=== PATIENT | male | born 1975 | race African-American/Black ===

== ENCOUNTER 2017-11-25 09:01 | Emergency (ER) | payer OTHER ==
--- NOTE | 2017-11-25 10:05 | ED ---
General Adult HPI - General Chief complaint: Extremity Injury, Upper Stated complaint: rt shoulder pain Time Seen by Provider: 11/25/17 09:50 Source: patient, RN notes reviewed Mode of arrival: ambulatory Limitations: no limitations - History of Present Illness Initial comments: This is a 42-year-old male who states he hurt his shoulder over a year ago and now he comes in complaining of it hurting while he is at work. Patient states he has a new job entails a lot of lifting and moving parts and it hurts when he lifts his arm above his head. Patient states his been no reinjury of the area. Patient states he has no primary care doctor because he just moved to the area and he would like to follow up with orthopedics. Patient states she's been taking Tylenol for the pain. It has not helped. Patient denies any other problems at this time. Patient denies any numbness or weakness. Patient states he just lies it difficult to fully abduct his arm above his head - Related Data Previous Rx's Medication Instructions Recorded Ibuprofen [Motrin] 600 mg PO Q6HR PRN #20 tab 11/25/17 Allergies Allergy/AdvReac Type Severity Reaction Status Date / Time No Known Allergies Allergy Verified 11/25/17 09:55 Review of Systems ROS Statement: Those systems with pertinent positive or pertinent negative responses have been documented in the HPI. ROS Other: All systems not noted in ROS Statement are negative. Past Medical History Additional Past Medical History / Comment(s): r shoulder pain History of Any Multi-Drug Resistant Organisms: None Reported Additional Past Surgical History / Comment(s): jaw surg Past Psychological History: No Psychological Hx Reported Smoking Status: Current every day smoker Past Alcohol Use History: Occasional Past Drug Use History: None Reported General Exam - General Exam Comments Initial Comments: GENERAL Patient is well-developed and well-nourished. Patient is in mild distress. EYES Patient's pupils are equal and round. Extraocular motion is intact SKIN Unremarkable NEURO The patient is alert and oriented 3 PYSCH Patient has normal interpersonal interactions. MUSCULOSKELETAL Patient has some mild tenderness on the lateral aspect of the shoulder there is no swelling is no redness patient has no obvious deficit in strength. She does appear to have some difficulty raising it above his head secondary to pain but he is able to do it. Limitations: no limitations Course Vital Signs 11/25/17 09:21 Temperature 98.2 F Pulse Rate 89 Respiratory 18 Rate Blood Pressure 157/99 O2 Sat by Pulse 98 Oximetry Disposition Clinical Impression: Shoulder strain Disposition: HOME SELF-CARE Condition: Good Instructions: Shoulder Sprain (ED) Prescriptions: Ibuprofen [Motrin] 600 mg PO Q6HR PRN #20 tab PRN Reason: For pain Referrals: None,Stated [Primary Care Provider] - 1-2 days Omid Reyes MD [Medical Doctor] - 1-2 days Time of Disposition: 10:04
[2017-11-25] MEDS ORDERED: cloNIDine HCL 0.1 MG TAB PO STA (10:16)
[2017-11-25 10:23] VITALS: RESP 16; TEMP 97.4
[2017-11-25 10:28] VITALS: BP 143/105; PULSE 75
== END 2017-11-25 10:30 | disposition home or self-care (01) ==
LOC: EC 09:01
DX: S46.911A Strain of unspecified muscle, fascia and tendon at shoulder and upper arm level, right arm, initial encounter (principal); F17.200 Nicotine dependence, unspecified, uncomplicated; X50.0XXA Overexertion from strenuous movement or load, initial encounter
CPT/HCPCS: 99282

== ENCOUNTER → 2019-09-19 | Outpatient (CLI) | payer OTHER ==
--- NOTE | 2019-09-19 15:11 | XR ---
Left shoulder HISTORY: Trauma and pain 4 views of the left shoulder There is slight superior displacement of distal clavicle in relation to the acromion. Left lung apex as visualized is normal. Bone mineralization is unremarkable. No evident fracture. IMPRESSION: Correlate for acromioclavicular separation.
== END | disposition home or self-care (01) ==
LOC: RADXRMAIN 14:38
PROVIDERS: ATTEND Emergency Medicine
DX: S46.802A Unspecified injury of other muscles, fascia and tendons at shoulder and upper arm level, left arm, initial encounter (principal)

== ENCOUNTER 2020-12-14 15:03 | Inpatient (IN) | payer OTHER ==
--- NOTE | 2020-12-14 15:32 | ED ---
Abdominal Pain HPI - General Source: patient, RN notes reviewed Mode of arrival: ambulatory Limitations: no limitations - History of Present Illness MD Complaint: abdominal pain -: days(s) (3) Location: RUQ, epigastric Radiation: back Severity: moderate Severity scale (1-10): 8 Quality: sharp, burning Improves With: medication Worsens With: movement (lying down) Context: other (drinking 1/2 pint a day up to 5 days a week, today 2 shots) Associated Symptoms: diarrhea (is taking a laxative prescribed after told constipation 1 month ago) Treatments Prior to Arrival: other (pantoprazole and sucrafalate) <Carlos Singh - Last Filed: 12/14/20 18:30> <Isael Lenz - Last Filed: 12/14/20 18:45> - General Chief Complaint: Abdominal Pain Stated Complaint: Abd Pain Time Seen by Provider: 12/14/20 15:18 - History of Present Illness Initial Comments: 45-year-old black male patient presents to the emergency room with approximately 3 days of sharp, burning, epigastric abdominal pain 05/14. Patient has a history of hypertension, jaw surgery and right tib-fib surgery last year. States drinks up to 5 days a week upt to a pint to help cope with loosing his job and covid. Patient denies homicidal or suicidal ideation. Patient also admits to smoking 1/2 a pack a day. was seen 1 month ago at [facility] and told after a chest x-ray and CAT scan, that he had pneumonia and gastritis. Was prescribed pantoprazole and sucrafalate along with albuterol and Combivent. Patient does have some relief from abdominal pain with pantoprazole and sucrafalte. Patient states had 2 shots today which worsened his pain. Patient denies nausea and vomiting seats did have diarrhea but was taking a laxative as previously prescribed. Patient denies chest pain shortness of breath Patient denies illicit drug use. (Carlos Singh) - Related Data Previous Rx's Medication Instructions Recorded Ibuprofen [Motrin] 600 mg PO Q6HR PRN #20 tab 11/25/17 Allergies Allergy/AdvReac Type Severity Reaction Status Date / Time No Known Allergies Allergy Verified 12/14/20 15:10 Review of Systems ROS Other: All systems not noted in ROS Statement are negative. <Carlos Singh - Last Filed: 12/14/20 18:30> ROS Other: All systems not noted in ROS Statement are negative. <Isael Lenz - Last Filed: 12/14/20 18:45> ROS Statement: Those systems with pertinent positive or pertinent negative responses have been documented in the HPI. Past Medical History Past Medical History: Hypertension Additional Past Medical History / Comment(s): r shoulder pain History of Any Multi-Drug Resistant Organisms: None Reported Past Surgical History: Orthopedic Surgery Additional Past Surgical History / Comment(s): jaw surg Past Psychological History: No Psychological Hx Reported Smoking Status: Current every day smoker Past Alcohol Use History: Heavy Past Drug Use History: None Reported <Carlos Singh - Last Filed: 12/14/20 18:30> General Exam Limitations: no limitations General appearance: alert, in no apparent distress Head exam: Present: atraumatic, normocephalic, normal inspection Eye exam: Present: normal appearance, PERRL, EOMI. Absent: scleral icterus, conjunctival injection, periorbital swelling ENT exam: Present: normal exam, mucous membranes moist Neck exam: Present: normal inspection. Absent: tenderness, meningismus, lymphadenopathy Respiratory exam: Present: normal lung sounds bilaterally. Absent: respiratory distress, wheezes, rales, rhonchi, stridor Cardiovascular Exam: Present: regular rate, normal rhythm, normal heart sounds. Absent: systolic murmur, diastolic murmur, rubs, gallop, clicks GI/Abdominal exam: Present: soft, tenderness (right upper and epigastric), hyperactive bowel sounds. Absent: distended, guarding, rebound, rigid, organomegaly, mass, bruit, pulsatile mass, hernia Extremities exam: Present: normal inspection, full ROM, normal capillary refill. Absent: tenderness, pedal edema, joint swelling, calf tenderness Neurological exam: Present: alert, oriented X3, CN II-XII intact Psychiatric exam: Present: normal affect, normal mood, depressed (admits to depression, denies SI , HI). Absent: agitated, flat affect, homicidal ideation, suicidal ideation Skin exam: Present: warm, dry, intact, normal color. Absent: rash <Carlos Singh - Last Filed: 12/14/20 18:30> Course - Reevaluation(s) Time: 16:38 <Carlos Singh - Last Filed: 12/14/20 18:30> <Isael Lenz - Last Filed: 12/14/20 18:45> Vital Signs 12/14/20 12/14/20 12/14/20 15:08 17:46 18:38 Temperature 97.8 F 98.0 F 98.0 F Pulse Rate 67 91 98 Respiratory 18 18 16 Rate Blood Pressure 150/111 163/89 167/89 O2 Sat by Pulse 99 99 99 Oximetry - Reevaluation(s) Reevaluation #1: 12/14/20 16:38 Patient states pain is 5 or 6 out of 10 at this time. States pain is worse when laying flat and resolves when he stands or sits up. Awaiting CBC however ALT and AST are elevated with EtOH level of 152 (Carlos Singh) Reevaluation #2: 12/14/20 18:45 PA supervision: I did personally evaluates case patient's present with complaints of abdominal pain he is found to have pancreatitis in addition to alcohol intoxication. He'll be admitted with consultation to GI. (Isael Lenz) Medical Decision Making - Lab Data Result diagrams: 12/14/20 15:51 12/14/20 15:51 - Radiology Data Radiology results: report reviewed, image reviewed (no pneumoperitoneum, non- obstructing, non-distending gas pattern noted) <Carlos Singh - Last Filed: 12/14/20 18:30> - Lab Data Result diagrams: 12/14/20 15:51 12/14/20 15:51 <Isael Lenz - Last Filed: 12/14/20 18:45> - Medical Decision Making Patient given 1 L of 0.9 normal saline bolus, a lipase 1709, ALT is 76 AST 174 alk phos 151 alcohol level 152. X-ray shows nondistended and nonobstructive gas pattern no pneumoperitoneum no abnormal calcifications. Spoke with primary care physician Dr. Hannon will admit patient to his care with the GI consult to Dr. Damon. Potassium level of 3.3 with give 40 of kdur po. Patient will be placed on a CIWA scale to monitor for alcohol withdrawal. Patient given Dilaudid for pain and will be NPO until seen by GI. (Carlos Singh) - Lab Data Lab Results 12/14/20 12/14/20 12/14/20 Range/Units 15:51 15:51 15:51 WBC 7.4 (3.8-10.6) k/uL RBC 3.62 L (4.30-5.90) m/uL Hgb 13.2 (13.0-17.5) gm/dL Hct 38.5 L (39.0-53.0) % MCV 106.5 H (80.0-100.0) fL MCH 36.5 H (25.0-35.0) pg MCHC 34.3 (31.0-37.0) g/dL RDW 13.7 (11.5-15.5) % Plt Count 245 (150-450) k/uL MPV 7.7 Neutrophils % 52 % Lymphocytes % 37 % Monocytes % 5 % Eosinophils % 4 % Basophils % 1 % Neutrophils # 3.9 (1.3-7.7) k/uL Lymphocytes # 2.7 (1.0-4.8) k/uL Monocytes # 0.3 (0-1.0) k/uL Eosinophils # 0.3 (0-0.7) k/uL Basophils # 0.0 (0-0.2) k/uL Macrocytosis Moderate PT (9.0-12.0) sec INR (<1.2) APTT (22.0-30.0) sec Sodium 141 (137-145) mmol/L Potassium 3.3 L (3.5-5.1) mmol/L Chloride 107 (98-107) mmol/L Carbon Dioxide 23 (22-30) mmol/L Anion Gap 11 mmol/L BUN 5 L (9-20) mg/dL Creatinine 0.67 (0.66-1.25) mg/dL Est GFR (CKD-EPI)AfAm >90 (>60 ml/min/1.73 sqM) Est GFR (CKD-EPI)NonAf >90 (>60 ml/min/1.73 sqM) Glucose 106 H (74-99) mg/dL Calcium 9.3 (8.4-10.2) mg/dL Magnesium (1.6-2.3) mg/dL Total Bilirubin 0.4 (0.2-1.3) mg/dL AST 174 H (17-59) U/L ALT 76 H (4-49) U/L Alkaline Phosphatase 151 H (38-126) U/L Total Protein 7.4 (6.3-8.2) g/dL Albumin 4.4 (3.5-5.0) g/dL Lipase 1709 H (23-300) U/L Urine Color Yellow Urine Appearance Clear (Clear) Urine pH 6.0 (5.0-8.0) Ur Specific [place] 1.020 (1.001-1.035) Urine Protein Negative (Negative) Urine Glucose (UA) Negative (Negative) Urine Ketones Negative (Negative) Urine Blood Negative (Negative) Urine Nitrite Negative (Negative) Urine Bilirubin Negative (Negative) Urine Urobilinogen <2.0 (<2.0) mg/dL Ur Leukocyte Esterase Negative (Negative) Serum Alcohol 152 mg/dL 12/14/20 12/14/20 Range/Units 15:51 15:51 WBC (3.8-10.6) k/uL RBC (4.30-5.90) m/uL Hgb (13.0-17.5) gm/dL Hct (39.0-53.0) % MCV (80.0-100.0) fL MCH (25.0-35.0) pg MCHC (31.0-37.0) g/dL RDW (11.5-15.5) % Plt Count (150-450) k/uL MPV Neutrophils % % Lymphocytes % % Monocytes % % Eosinophils % % Basophils % % Neutrophils # (1.3-7.7) k/uL Lymphocytes # (1.0-4.8) k/uL Monocytes # (0-1.0) k/uL Eosinophils # (0-0.7) k/uL Basophils # (0-0.2) k/uL Macrocytosis PT 11.6 (9.0-12.0) sec INR 1.1 (<1.2) APTT 25.6 (22.0-30.0) sec Sodium (137-145) mmol/L Potassium (3.5-5.1) mmol/L Chloride (98-107) mmol/L Carbon Dioxide (22-30) mmol/L Anion Gap mmol/L BUN (9-20) mg/dL Creatinine (0.66-1.25) mg/dL Est GFR (CKD-EPI)AfAm (>60 ml/min/1.73 sqM) Est GFR (CKD-EPI)NonAf (>60 ml/min/1.73 sqM) Glucose (74-99) mg/dL Calcium (8.4-10.2) mg/dL Magnesium 1.7 (1.6-2.3) mg/dL Total Bilirubin (0.2-1.3) mg/dL AST (17-59) U/L ALT (4-49) U/L Alkaline Phosphatase (38-126) U/L Total Protein (6.3-8.2) g/dL Albumin (3.5-5.0) g/dL Lipase (23-300) U/L Urine Color Urine Appearance (Clear) Urine pH (5.0-8.0) Ur Specific [place] (1.001-1.035) Urine Protein (Negative) Urine Glucose (UA) (Negative) Urine Ketones (Negative) Urine Blood (Negative) Urine Nitrite (Negative) Urine Bilirubin (Negative) Urine Urobilinogen (<2.0) mg/dL Ur Leukocyte Esterase (Negative) Serum Alcohol mg/dL Disposition Decision Date: 12/14/20 Decision Time: 18:23 <Carlos Singh - Last Filed: 12/14/20 18:30> <Isael Lenz - Last Filed: 12/14/20 18:45> Clinical Impression: Pancreatitis, Alcohol intoxication Disposition: ADMITTED IP TO THIS [facility] Condition: Good Referrals: Pollo Hannon MD [Primary Care Provider] - 1-2 days
[2020-12-14] MEDS ORDERED: SODIUM CHLORIDE 0.9% 1,000 ML IV STA (15:39)
[2020-12-14] MEDS ORDERED: FAMOTIDINE 20 MG/2 ML VIAL IV STA (15:43)
--- NOTE | 2020-12-14 16:02 | XR ---
EXAMINATION TYPE: XR KUB DATE OF EXAM: 12/14/2020 3:57 PM CLINICAL HISTORY: Abdominal pain for 3 days. TECHNIQUE: Two Upright KUB images of the abdomen are obtained. COMPARISON: None. FINDINGS: Gas in nondistended stomach bubble. Scattered gas is seen in non-distended small and large bowel loops. Suspect nondilated sigmoid colonic loop overlying the sacrum. Loss of haustration noted. There is no visceromegaly, pneumoperitoneum, or abnormal calcification appreciated. The lung bases a re clear and the osseous structures are intact. IMPRESSION: Overall nonobstructive bowel gas pattern. Consider focal sigmoid colitis, correlate clinically.
[2020-12-14 16:09] LABS: ALT 76 U/L (4-49); AST 174 U/L (17-59); African American GFR (CKD) >90 (>60 ml/min/1.73 sqM); Albumin 4.4 g/dL (3.5-5.0); Alkaline Phosphatase 151 U/L (38-126); Anion Gap 11 mmol/L; Blood Urea Nitrogen 5 mg/dL (9-20); Calcium 9.3 mg/dL (8.4-10.2); Carbon Dioxide 23 mmol/L (22-30); Chloride 107 mmol/L (98-107); Glucose 106 mg/dL (74-99); Non-African American GFR(CKD) >90 (>60 ml/min/1.73 sqM); Potassium 3.3 mmol/L (3.5-5.1); Sodium 141 mmol/L (137-145); Total Bilirubin 0.4 mg/dL (0.2-1.3); Total Protein 7.4 g/dL (6.3-8.2)
[2020-12-14 16:12] LABS: Appearance,Urine Clear (Clear); Bilirubin,Urine Negative (Negative); Blood,Urine Negative (Negative); Color,Urine Yellow; Glucose,Urine (UA) Negative (Negative); Ketones,Urine Negative (Negative); Leukocyte Esterase,Urine Negative (Negative); Nitrite,Urine Negative (Negative); Protein,Urine Negative (Negative); Urobilinogen,Urine <2.0 mg/dL (<2.0)
[2020-12-14 16:17] LABS: Alcohol 152 mg/dL
[2020-12-14 16:22] LABS: Basophils % (A) 1 %; Eosinophils # (A) 0.3 k/uL (0-0.7); Eosinophils % (A) 4 %; HCT 38.5 % (39.0-53.0); HGB 13.2 gm/dL (13.0-17.5); Lymphocytes # (A) 2.7 k/uL (1.0-4.8); Lymphocytes % (A) 37 %; MCH 36.5 pg (25.0-35.0); MCHC 34.3 g/dL (31.0-37.0); MCV 106.5 fL (80.0-100.0); Macrocytosis Moderate; Mean Platelet Volume 7.7; Monocytes # (A) 0.3 k/uL (0-1.0); Monocytes % (A) 5 %; Neutrophils # (A) 3.9 k/uL (1.3-7.7); Neutrophils % (A) 52 %; Platelet Count 245 k/uL (150-450); RBC 3.62 m/uL (4.30-5.90); RDW 13.7 % (11.5-15.5); WBC 7.4 k/uL (3.8-10.6)
[2020-12-14 16:38] LABS: INR 1.1 (<1.2); Partial Thromboplastin Time 25.6 sec (22.0-30.0); Prothrombin Time 11.6 sec (9.0-12.0)
[2020-12-14] MEDS ORDERED: HYDROmorphone 0.5 MG/0.5 ML SYRINGE IVP STA (17:22)
[2020-12-14 17:27] LABS: Lipase 1709 U/L (23-300)
[2020-12-14] MEDS ORDERED: NALOXONE 0.4 MG/ML 1 ML VIAL IV PRN (18:10)
[2020-12-14] MEDS ORDERED: THIAMINE 100 MG/ML 2 ML VIAL IM STA (18:15)
[2020-12-14] MEDS ORDERED: LORazepam 2 MG/ML INJ IV PRN ×3 (18:15)
[2020-12-14] MEDS ORDERED: POTASSIUM CHLORIDE ER 20 MEQ TAB.ER PO STA (18:17)
[2020-12-14] MEDS: SODIUM CHLORIDE 0.9% 1,000 ML IV SCH ×2 (18:29→22:56)
[2020-12-14] MEDS: THIAMINE 100 MG TAB PO SCH (18:30)
--- NOTE | 2020-12-14 19:47 | US ---
EXAMINATION TYPE: US abdomen limited DATE OF EXAM: 12/14/2020 COMPARISON: NONE CLINICAL HISTORY: RUQ abd pain radiates to back. EXAM MEASUREMENTS: Liver Length: 15.1 cm Gallbladder Wall: 0.1 cm CBD: 0.4 cm Right Kidney: 11.5 x 5.4 x 5.2 cm Extensive overlying midline bowel gas, technically difficult limited study. Pancreas: Obscured by bowel gas Liver: small left lobe cyst measuring 0.8 x 0.5 x 0.8cm Gallbladder: probable sludge, normal wall thickness Evidence for sonographic Elias's sign: no CBD: wnl Right Kidney: not well visualized, no obvious mass or hydro IMPRESSION: No gallstones or dilated ducts. No free fluid.
--- NOTE | 2020-12-14 22:10 | HP ---
HISTORY AND PHYSICAL This patient is a 45-year-old male who came to the hospital with epigastric pain for the past 5 days. He has been drinking half a pint a day for multiple months due to losing his job due to COVID. He was found to have severely elevated amylase and lipase of 1700, at which time he came to the hospital for nausea, vomiting, alcohol withdrawal. ALLERGIES: NO KNOWN DRUG ALLERGIES. PAST MEDICAL HISTORY: Hypertension, osteoarthritis, rotator cuff difficulties, orthopedic surgery. Current everyday smoker. Heavy alcohol. PHYSICAL EXAMINATION: No acute distress. VITAL SIGNS: Reviewed. Blood pressure 150s to 160s over 80s to 111, oxygen 99%, temperature 97 to 98, pulse 60s to 90s, respiratory rate 18 to 20. Pupils equal, round, reactive. NECK: Supple. No mass. RESPIRATORY: Clear. CARDIOVASCULAR: S1, S2. GI: Tenderness to palpation, epigastric mid abdomen. No guarding. No rebound. EXTREMITIES: No cyanosis, clubbing, edema. NEUROLOGIC: Alert and oriented x3. PSYCH: Fair mood and affect. ASSESSMENT: 1. Acute pancreatitis. 2. Alcohol intoxication. GI consultation. 3. Hypokalemia. Replace potassium. 4. Hypertension acceleration. Treat with medications. Restart his home medicines. N.p.o. versus clear liquid diet at this time. Please see further orders. MMODL / IJN: [id number] /
[2020-12-14] MEDS: traZODone HCL 50 MG TAB PO PRN (22:51)
[2020-12-14] MEDS: HYDROmorphone 0.5 MG/0.5 ML SYRINGE IVP PRN (22:51)
[2020-12-14] MEDS: SUCRALFATE 1 GM TAB PO SCH (22:51)
[2020-12-15] MEDS: HYDROmorphone 0.5 MG/0.5 ML SYRINGE IVP PRN ×5 (04:07→21:45)
[2020-12-15] MEDS: SODIUM CHLORIDE 0.9% 1,000 ML IV SCH ×3 (04:09→21:44)
[2020-12-15 07:26] LABS: Basophils % (A) 0 %; Eosinophils # (A) 0.4 k/uL (0-0.7); Eosinophils % (A) 6 %; HCT 34.8 % (39.0-53.0); HGB 12.5 gm/dL (13.0-17.5); Lymphocytes # (A) 2.9 k/uL (1.0-4.8); Lymphocytes % (A) 47 %; MCH 38.3 pg (25.0-35.0); MCHC 36.1 g/dL (31.0-37.0); MCV 106.1 fL (80.0-100.0); Macrocytosis Slight; Mean Platelet Volume 6.9; Monocytes # (A) 0.3 k/uL (0-1.0); Monocytes % (A) 4 %; Neutrophils # (A) 2.6 k/uL (1.3-7.7); Neutrophils % (A) 42 %; Platelet Count 205 k/uL (150-450); RBC 3.28 m/uL (4.30-5.90); RDW 12.9 % (11.5-15.5); WBC 6.2 k/uL (3.8-10.6)
[2020-12-15 07:43] LABS: ALT 60 U/L (4-49); AST 126 U/L (17-59); African American GFR (CKD) >90 (>60 ml/min/1.73 sqM); Albumin 3.7 g/dL (3.5-5.0); Albumin/Globulin Ratio 1.3; Alkaline Phosphatase 134 U/L (38-126); Amylase 133 U/L (30-110); Anion Gap 6 mmol/L; Blood Urea Nitrogen 3 mg/dL (9-20); Calcium 8.3 mg/dL (8.4-10.2); Carbon Dioxide 23 mmol/L (22-30); Chloride 108 mmol/L (98-107); Globulin 2.9 g/dL; Glucose 99 mg/dL (74-99); Lipase 870 U/L (23-300); Non-African American GFR(CKD) >90 (>60 ml/min/1.73 sqM); Potassium 3.2 mmol/L (3.5-5.1); Sodium 137 mmol/L (137-145); Total Bilirubin 0.7 mg/dL (0.2-1.3); Total Protein 6.6 g/dL (6.3-8.2)
[2020-12-15] MEDS: PANTOPRAZOLE 40 MG TABLET PO SCH (07:59)
[2020-12-15] MEDS: MULTIVITAMINS, THERA 1 EACH TAB PO SCH (07:59)
[2020-12-15] MEDS: SUCRALFATE 1 GM TAB PO SCH ×4 (07:59→21:45)
[2020-12-15] MEDS: amLODIPine 2.5 MG TAB PO SCH (07:59)
[2020-12-15] MEDS: THIAMINE 100 MG TAB PO SCH ×2 (07:59→17:47)
[2020-12-15] MEDS: IPRATROPIUM-ALBUTEROL 3 ML NEB INHALATION SCH ×4 (08:01→19:32)
--- NOTE | 2020-12-15 09:50 | CONS ---
CONSULTATION DATE OF SERVICE: 12/15/2020 REASON FOR CONSULTATION: Acute pancreatitis. HISTORY OF PRESENT ILLNESS: The patient is a 45-year-old male admitted to the hospital with epigastric pain for the last 3-4 days duration, history of heavy alcohol abuse for the last 30 years duration. The patient came in with multiple episodes of nausea and vomiting and was noted to have elevated amylase and lipase consistent with acute pancreatitis. This morning he is feeling better. The nausea and vomiting has improved, but still has some epigastric discomfort. He reports no fever, chills, night sweats. He never had these symptoms in the past. PAST MEDICAL HISTORY: Hypertension, degenerative joint disease, alcoholism. MEDICATIONS: Medications at home include Norvasc trazodone, Carafate, Protonix, Flovent. ALLERGIES: None. SOCIAL HISTORY: Chronic smoker. Alcohol use as mentioned above. FAMILY HISTORY: Unremarkable. PAST SURGICAL HISTORY: Right shoulder surgery. REVIEW OF SYSTEMS: CARDIOPULMONARY: No chest pain or shortness of breath. no dysuria or hematuria. MUSCULOSKELETAL unremarkable. SKIN unremarkable. ENDOCRINE unremarkable. PSYCHIATRIC unremarkable. NEUROLOGY: Unremarkable. ENT/VISION: Unremarkable. CONSTITUTIONAL: No recent weight loss. No fever, chills, night sweats. GI as mentioned above. PHYSICAL EXAMINATION: He appears comfortable. No apparent distress. VITAL SIGNS: Stable. Blood pressure is 139/82, pulse rate 99 per minute and afebrile. HEENT examination unremarkable. Conjunctivae pink. Sclerae anicteric. Oral cavity no lesions. NECK: No JVD or lymph node enlargement. CHEST was clear to auscultation. HEART: Regular rate and rhythm. ABDOMEN: Soft. Bowel sounds are positive. Mild tenderness in the epigastric area. EXTREMITIES: No pedal edema. SKIN no rashes. NEUROLOGIC: Alert and oriented x3. No focal deficits. LABS: WBC 7.4, hemoglobin 13.2, platelets normal. Basic metabolic panel is within normal limits. AST and ALT are 174 and 76 respectively. T-bilirubin and alkaline phosphatase are within normal limits. Lipase was 1709 and today it is down to 870. Barbour virus PCR is negative. Abdominal ultrasound showed no evidence of gallstones or biliary ductal dilation. Pancreas was obscured by gas. IMPRESSION: 1. This is a patient with history of heavy alcohol abuse presented to the hospital with acute onset of epigastric pain associated with nausea and vomiting for the last 3 days duration. Labs revealed elevated amylase and lipase consistent with acute pancreatitis most likely alcohol related. Ultrasound of the abdomen did not show any evidence of gallstones or biliary ductal dilation. 2. History of heavy alcohol abuse of several years duration. 3. Mild alcohol withdrawal. RECOMMENDATIONS: 1. Start him on a clear liquid diet. 2. Symptomatic and supportive care. 3. Pain medications as needed. 4. Repeat labs in the morning and advance diet as tolerated based on his clinical course. 5. Abstinence from alcohol. 6. Will follow with you closely. Thank you for this consultation. MMGREGORYL / KEITHN: [id number] /
--- NOTE | 2020-12-15 11:54 | PN ---
PROGRESS NOTE 45-year-old white male came in with alcohol induced pancreatitis. He is n.p.o. currently. His liver enzymes are improved from yesterday. His amylase is down to from 155-133. Lipase 1709 down to 870. He is on alcohol CIWA protocol. Hypertension has been treated with home medications. Cardiovascular: S1-S2. Lungs clear. GI: Mild tenderness, diffuse. He is on Dilaudid for pain. No guarding. No rebound. ASSESSMENT: 1. Alcohol intoxication. 2. Heavy alcohol abuse. 3. Acute on chronic pancreatitis, alcohol related. Ultrasound negative for gallstones or biliary dilation. Clear liquid diet. Pain medicine. Repeat labs in the morning. Possibly continue CIWA protocol. Possibly discharge home tomorrow. MMODL / IJN: [id number] /
[2020-12-15] MEDS: traZODone HCL 50 MG TAB PO PRN (21:45)
[2020-12-16] MEDS: SODIUM CHLORIDE 0.9% 1,000 ML IV SCH ×2 (00:07→08:03)
[2020-12-16] MEDS: HYDROmorphone 0.5 MG/0.5 ML SYRINGE IVP PRN ×3 (01:55→12:25)
[2020-12-16] MEDS: SUCRALFATE 1 GM TAB PO SCH ×2 (07:59→12:31)
[2020-12-16] MEDS: PANTOPRAZOLE 40 MG TABLET PO SCH (07:59)
[2020-12-16] MEDS: MULTIVITAMINS, THERA 1 EACH TAB PO SCH (07:59)
[2020-12-16] MEDS: THIAMINE 100 MG TAB PO SCH (08:02)
[2020-12-16] MEDS: amLODIPine 2.5 MG TAB PO SCH (08:07)
[2020-12-16] MEDS: IPRATROPIUM-ALBUTEROL 3 ML NEB INHALATION SCH ×2 (08:30→11:39)
--- NOTE | 2020-12-16 10:38 | PN ---
PROGRESS NOTE DATE OF DICTATION: December 16, 2020 Patient is a 45-year-old white male admitted to hospital with acute alcoholic pancreatitis. The patient is feeling much better today on a full liquid diet, tolerating well. Abdominal pain has improved requiring pain medications quite infrequently. Labs from today are still pending. PHYSICAL EXAMINATION: He appears comfortable. No apparent distress. VITAL SIGNS: Stable. Blood pressure is 143/80, pulse 96, temperature 98.9. HEENT examination unremarkable. Conjunctivae pink. Sclerae anicteric oral cavity no lesions. NECK: No JVD. No lymph node enlargement. CHEST was clear to auscultation. HEART: Regular rate and rhythm. ABDOMEN: Soft. Minimal tenderness in the epigastric area. Bowel sounds are positive. No organomegaly. EXTREMITIES: No pedal edema. NEUROLOGIC: Alert and oriented x3. No focal deficits. LABS: From yesterday: Amylase 133, lipase 870. AST, ALT 60 and 134, alkaline phosphatase 134. Lab from today are still pending. IMPRESSION: 1. Acute pancreatitis secondary to alcohol use. Ultrasound of the abdomen did not show any evidence of gallstones. Lipase is gradually improving. Clinically patient has significantly improved on a soft diet, tolerating well. 2. Heavy alcohol abuse. 3. Mild elevation of serum transaminases secondary to chronic alcoholic liver disease. RECOMMENDATIONS: 1. Advance to low-fat diet. 2. Repeat labs today. 3. If the labs are improving, the patient can be discharged home today or tomorrow with outpatient followup in 2 weeks. In the meantime, he was advised to remain abstinent from alcohol. Thank you for this consultation. MMODL / IJN: [id number] /
[2020-12-16 11:33] LABS: HGB 10.9 g/dL (13.0-17.0); MCH 36.9 pg (27.0-32.0); MCHC 34.1 g/dL (32.0-37.0); MCV 108.5 fL (80.0-97.0); Mean Platelet Volume 10.3 fL (9.5-12.2); Platelet Count 185 X 10*3/uL (140-440); RBC 2.95 X 10*6/uL (4.40-5.60); RDW 13.1 % (11.5-14.5); WBC 7.45 X 10*3/uL (4.50-10.00)
[2020-12-16] MEDS ORDERED: POTASSIUM CHLORIDE ER 20 MEQ TAB.ER PO STA (11:51)
[2020-12-16 12:05] LABS: ALT 45 U/L (10-49); AST 57 U/L (14-35); Alkaline Phosphatase 137 U/L (41-126); Basophils # (A) 0.04 X 10*3/uL (0.00-0.10); Basophils % (A) 0.5 %; Blood Urea Nitrogen <5.0 mg/dL (9.0-27.0); Calcium 8.9 mg/dL (8.7-10.3); Carbon Dioxide 26.8 mmol/L (21.6-31.8); Chloride 106 mmol/L (96-109); Eosinophils # (A) 0.26 X 10*3/uL (0.04-0.35); Eosinophils % (A) 3.5 %; Globulin 2.3 g/dL (1.6-3.3); Glucose 140 mg/dL (70-110); Lipase 145 U/L (14-60); Lymphocytes # (A) 2.42 X 10*3/uL (0.90-5.00); Lymphocytes % (A) 32.5 %; Monocytes # (A) 0.48 X 10*3/uL (0.20-1.00); Monocytes % (A) 6.4 %; Neutrophils # (A) 4.23 X 10*3/uL (1.80-7.70); Neutrophils % (A) 56.8 %; Non-African American GFR(CKD) 115.6 (60.0-200.0); Potassium 3.4 mmol/L (3.5-5.5); Sodium 140 mmol/L (135-145); Total Bilirubin 0.6 mg/dL (0.2-1.2); Total Protein 6.2 g/dL (6.2-8.2)
[2020-12-16 13:12] VITALS: BP 136/91; PULSE 101; RESP 18; TEMP 97.7
--- NOTE | 2020-12-16 14:23 | P.GSCN ---
History of Present Illness Consult date: 12/16/20 Reason for Consult: Cholecystitis History of present illness: This is a 45-year-old male was admitted to Dr. Ochoa service patient has had history of alcohol abuse. Patient noted have evidence of pancreatitis and liver function tests which are elevated. He has sludge in his gallbladder. He shouldn't has had pain in her upper quadrant in the past. Past Medical History Past Medical History: Hypertension Additional Past Medical History / Comment(s): r shoulder pain, kidney infection History of Any Multi-Drug Resistant Organisms: None Reported Past Surgical History: Orthopedic Surgery Additional Past Surgical History / Comment(s): jaw surg, leg (right- pins/ plate) Past Anesthesia/Blood Transfusion Reactions: No Reported Reaction Additional Psychological History / Comment(s): insomnia Smoking Status: Current every day smoker Past Alcohol Use History: Heavy Past Drug Use History: None Reported Additional Drug Use History / Comment(s): 1/2 pack per day Medications and Allergies Home Medications Medication Instructions Recorded Confirmed Type Fluticasone Propionate [Flovent 2 puff INHALATION RT-BID 12/14/20 12/14/20 History Hfa 110 mcg] Ipratropium/Albuter 20-100Mcg 1 puff INHALATION RT-QID 12/14/20 12/14/20 History [Combivent Respimat 20-100Mcg Inhaler] Multivit-Min/FA/Lycopen/Lutein 1 tab PO DAILY 12/14/20 12/14/20 History [Centrum Silver Men Tablet] Pantoprazole [Protonix] 40 mg PO DAILY 12/14/20 12/14/20 History Sucralfate [Carafate] 1 gm PO QID 12/14/20 12/14/20 History amLODIPine [Norvasc] 2.5 mg PO DAILY 12/14/20 12/14/20 History traZODone HCL 50 mg PO HS PRN 12/14/20 12/14/20 History Allergies Allergy/AdvReac Type Severity Reaction Status Date / Time No Known Allergies Allergy Verified 12/14/20 19:14 Surgical - Exam Vital Signs Temp Pulse Resp BP Pulse Ox 97.8 F 67 18 150/111 99 12/14/20 15:08 12/14/20 15:08 12/14/20 15:08 12/14/20 15:08 12/14/20 15:08 - General well developed, well nourished, no distress - Eyes PERRL - ENT normal pinna - Neck no masses - Respiratory normal expansion - Cardiovascular Rhythm: regular - Abdomen Mild right upper quadrant pain Abdomen: soft Results - Labs 12/16/20 09:13 12/16/20 09:13 Abnormal Lab Results - Last 24 Hours (Table) 12/16/20 12/16/20 Range/Units 09:13 09:13 RBC 2.95 L (4.40-5.60) X 10*6/uL Hgb 10.9 L (13.0-17.0) g/dL Hct 32.0 L (39.6-50.0) % MCV 108.5 H (80.0-97.0) fL MCH 36.9 H (27.0-32.0) pg Potassium 3.4 L (3.5-5.5) mmol/L BUN <5.0 L (9.0-27.0) mg/dL Glucose 140 H (70-110) mg/dL AST 57 H (14-35) U/L Alkaline Phosphatase 137 H (41-126) U/L Lipase 145 H (14-60) U/L Diabetes panel 12/16/20 Range/Units 09:13 Sodium 140 (135-145) mmol/L Potassium 3.4 L (3.5-5.5) mmol/L Chloride 106 (96-109) mmol/L Carbon Dioxide 26.8 (21.6-31.8) mmol/L BUN <5.0 L (9.0-27.0) mg/dL Creatinine 0.7 (0.6-1.5) mg/dL Glucose 140 H (70-110) mg/dL Calcium 8.9 (8.7-10.3) mg/dL AST 57 H (14-35) U/L ALT 45 (10-49) U/L Alkaline Phosphatase 137 H (41-126) U/L Total Protein 6.2 (6.2-8.2) g/dL Albumin 3.90 (3.80-4.90) g/dL Calcium panel 12/16/20 Range/Units 09:13 Calcium 8.9 (8.7-10.3) mg/dL Albumin 3.90 (3.80-4.90) g/dL Pituitary panel 12/16/20 Range/Units 09:13 Sodium 140 (135-145) mmol/L Potassium 3.4 L (3.5-5.5) mmol/L Chloride 106 (96-109) mmol/L Carbon Dioxide 26.8 (21.6-31.8) mmol/L BUN <5.0 L (9.0-27.0) mg/dL Creatinine 0.7 (0.6-1.5) mg/dL Glucose 140 H (70-110) mg/dL Calcium 8.9 (8.7-10.3) mg/dL Adrenal panel 12/16/20 Range/Units 09:13 Sodium 140 (135-145) mmol/L Potassium 3.4 L (3.5-5.5) mmol/L Chloride 106 (96-109) mmol/L Carbon Dioxide 26.8 (21.6-31.8) mmol/L BUN <5.0 L (9.0-27.0) mg/dL Creatinine 0.7 (0.6-1.5) mg/dL Glucose 140 H (70-110) mg/dL Calcium 8.9 (8.7-10.3) mg/dL Total Bilirubin 0.6 (0.2-1.2) mg/dL AST 57 H (14-35) U/L ALT 45 (10-49) U/L Alkaline Phosphatase 137 H (41-126) U/L Total Protein 6.2 (6.2-8.2) g/dL Albumin 3.90 (3.80-4.90) g/dL Assessment and Plan Assessment: Alcohol abuse Sludge and gallbladder Patient will be seen in the office for possible elective outpatient laparoscopic cholecystectomy.
--- NOTE | 2020-12-16 14:43 | DS ---
DISCHARGE SUMMARY DISCHARGE MEDICATIONS: 1. Trazodone 50 q.h.s. 2. Norvasc 2.5 daily. 3. Carafate 1 g daily q.i.d. p.r.n. 4. Protonix 40 mg daily. 5. Combivent 1 puff q.i.d. 6. Flovent 1 puff b.i.d. 7. Multivitamin daily. CONDITION: Condition stable. PROGNOSIS: Guarded. Ambulate as tolerated. Followup alcohol withdrawal in alcohol rehab as well as may be going to daily alcohol anonymous. Continue current medicines. Follow up in office in a couple days. He came in the hospital with alcohol induced pancreatitis. CIWA protocol was given for few days. Ultrasound of the abdomen showed some biliary sludge. Consult surgery who thinks he will need outpatient gallbladder surgery down the road as he had elevated ALT, AST, and alkaline phosphatase. All those numbers came back better as time went on. His lipase went from 1700 down to 200. His diet went up to regular. He has some family thing he has to do tomorrow. We will discharge him later today to follow up as an outpatient. MMODL / IJN: [id number] /
[2020-12-16 18:32] LABS: Amylase 119 U/L (23-121); Lipase 142 U/L (14-60)
== END 2020-12-16 14:40 | disposition home or self-care (01) | DRG 439 ==
LOC: EC 15:03 → 5NMEDONC 18:19
PROVIDERS: ADMIT Family Medicine; ATTEND Family Medicine
DX: K85.20 Alcohol induced acute pancreatitis without necrosis or infection (principal); F10.239 Alcohol dependence with withdrawal, unspecified; K82.8 Other specified diseases of gallbladder; E87.6 Hypokalemia; F10.229 Alcohol dependence with intoxication, unspecified; F17.210 Nicotine dependence, cigarettes, uncomplicated; Z87.01 Personal history of pneumonia (recurrent); K70.9 Alcoholic liver disease, unspecified; K86.1 Other chronic pancreatitis; Y90.6 Blood alcohol level of 120-199 mg/100 ml; Z79.899 Other long term (current) drug therapy; Z20.822 Contact with and (suspected) exposure to COVID-19; G47.00 Insomnia, unspecified
CPT/HCPCS: 36415; 74018; 76705; 80053; 80320; 81003; 82150; 83690; 83735; 85025; 85610; 85730; 87635; 94640; 96361; 96372; 96374; 96375; 99285

== ENCOUNTER → 2020-12-26 | Outpatient (CLI) | payer OTHER ==
--- NOTE | 2020-12-26 11:21 | XR ---
EXAMINATION TYPE: XR hand complete LT DATE OF EXAM: 12/26/2020 COMPARISON: NONE HISTORY: Pain TECHNIQUE: Three views are submitted. FINDINGS: There is a displaced intra-articular fracture of the middle phalanx fourth digit. There is subluxatio n of the middle phalanx relative to the proximal phalanx. Remaining osseous structures intact. IMPRESSION: 1. Intra-articular displaced fracture base middle phalanx fourth digit with subluxation or dislocatio n of the middle phalanx relative to the proximal phalanx.
== END | disposition home or self-care (01) ==
LOC: RADXRMAIN 10:04
PROVIDERS: ATTEND Family Medicine
DX: S62.625A Displaced fracture of middle phalanx of left ring finger, initial encounter for closed fracture (principal)

== ENCOUNTER → 2021-01-30 | Day surgery (SDC) | payer OTHER ==
[2021-01-28 12:07] VITALS: BMI 25.4
[~2021-01-30] MED LIST: ACETAMINOPHEN TAB 500 MG TAB PO PRN; BUPIVACAINE (PF) 0.5% 30 ML VIAL SQ ONE; DEXAMETHASONE SOD PHOSPHATE 4 MG/ML 1 ML VIAL IV ONE; GLYCOPYRROLATE 0.2 MG/ML 2 ML VIAL ONE; HEPARIN SODIUM,PORCINE/PF 5,000 UNIT/0.5 ML SYRINGE SQ PRN; HYDROmorphone 0.5 MG/0.5 ML SYRINGE IVP PRN; LACTATED RINGERS 1,000 ML IV ONE; LACTATED RINGERS 1,000 ML IV SCH; LIDOCAINE 1% (10MG/ML) FOR IV START INTRADERMA PRN; LIDOCAINE 1% INJ 10MG/ML (20 ML MDV) ONE; MIDAZOLAM 2 MG/2 ML VIAL IV PRN; MIDAZOLAM 2 MG/2 ML VIAL IVP ONE; NEOSTIGMINE 1 MG/ML 10 ML VIAL ONE; ONDANSETRON 4 MG/2 ML VIAL IVP ONE; PROPOFOL 10 MG/ML 20 ML VIAL IV ONE; ROCURONIUM 10 MG/ML (5 ML VIAL) IV ONE; ROPIVACAINE 5 MG/ML 30 ML VIAL ONE; SUCCINYLCHOLINE CHLORIDE 100 MG/5 ML SYR IV ONE; fentaNYL (PF) 50 MCG/ML 2 ML AMP IVP ONE; fentaNYL (PF) 50 MCG/ML 2 ML AMP ONE
--- NOTE | 2021-01-30 07:56 | P.GSHP ---
History of Present Illness H&P Date: 01/30/21 Chief Complaint: Cholelithiasis, right upper quadrant pain A 45-year-old male who second with rectal pain. Patient noted have cholelithiasis a. He presents today for laparoscopic cholecystectomy Past Medical History Past Medical History: Hypertension, Musculoskeletal Disorder, Respiratory Disorder Additional Past Medical History / Comment(s): Hx dislocation Rt shoulder; kidney infection. Hx lung infection 3 months ago. Dislocated left ring finger, to f/u w/ Dr chau. Hx Pancreatitis 12/14/20. Had J&J Covid vaccine 2 weeks ago, per patient. History of Any Multi-Drug Resistant Organisms: None Reported Past Surgical History: Orthopedic Surgery Additional Past Surgical History / Comment(s): jaw surg, ORIF Rt tibia (pins/plate) Past Anesthesia/Blood Transfusion Reactions: No Reported Reaction Smoking Status: Current every day smoker - Past Family History Mother Family Medical History: No Reported History Medications and Allergies Home Medications Medication Instructions Recorded Confirmed Type Fluticasone Propionate [Flovent 2 puff INHALATION RT-BID 12/14/20 01/28/21 History Hfa 110 mcg] Ipratropium/Albuter 20-100Mcg 1 puff INHALATION RT-QID 12/14/20 01/28/21 History [Combivent Respimat 20-100Mcg Inhaler] Multivit-Min/FA/Lycopen/Lutein 1 tab PO DAILY 12/14/20 01/28/21 History [Centrum Silver Men Tablet] Pantoprazole [Protonix] 40 mg PO DAILY 12/14/20 01/28/21 History amLODIPine [Norvasc] 2.5 mg PO DAILY 12/14/20 01/28/21 History traZODone HCL 50 mg PO HS PRN 12/14/20 01/28/21 History Allergies Allergy/AdvReac Type Severity Reaction Status Date / Time No Known Allergies Allergy Verified 01/28/21 11:28 Surgical - Exam Vital Signs Temp Pulse Resp BP Pulse Ox 97.8 F 85 18 116/85 100 01/30/21 06:50 01/30/21 06:50 01/30/21 06:50 01/30/21 06:50 01/30/21 06:50 - General well developed, well nourished, no distress - Eyes PERRL - ENT normal pinna - Neck no masses - Respiratory normal expansion - Cardiovascular Rhythm: regular - Abdomen Abdomen: soft, non tender Assessment and Plan Assessment: Vital pain Cholelithiasis, sludge and gallbladder We'll perform laparoscopic cholecystectomy
--- NOTE | 2021-01-30 08:33 | P.OP ---
Date of Procedure: 01/30/21 Preoperative Diagnosis: Biliary sludge Cholecystitis Postoperative Diagnosis: Biliary sludge Cholecystitis Procedure(s) Performed: Laparoscopic cholecystectomy Anesthesia: CODI Surgeon: Tim Steen Estimated Blood Loss (ml): 5 Pathology: other (Gallbladder) Condition: stable Disposition: PACU Description of Procedure: The patient was placed on the operating table. The patient received a general endotracheal tube anesthesia. The patients abdomen was prepped and draped in the usual sterile fashion. Through an infraumbilical stab incision, the fascia of the anterior abdominal wall was grasped with a pair of Kochers and then the Veress needle was placed in the peritoneal cavity. Position of the Veress needle was confirmed with positive drop test. The abdomen was then insufflated. After adequate insufflation, the 10 mm trocar was placed in the peritoneal cavity. Following this the laparoscope was placed in the peritoneal cavity. The patient was placed in the head-up, right side up position and then a 5 mm trocar was placed in the right lateral and right subcostal position under direct visualization. A 8 mm trocar was placed in the epigastric position. The gallbladder was grasped in the fundus and infundibulum. Traction on the gallbladder was placed in the lateral and the cephalad positions. The triangle of Calot was visualized.. The cystic duct was bluntly dissected until the union of the cystic duct and common bile duct wa s seen. A critical view of safety was achieved. The cystic duct was then divided and sealed with the Harmonic scissors. A PDS Endoloop was then placed throughout the cystic duct stump. The cystic artery divided and sealed with the Harmonic scissors. The gallbladder was then removed from the liver bed using Harmonic scissors. The gallbladder was then extracted through the epigastric port site. Operative field was checked for any bleeding spots and Harmonic scissors was used to coagulate the liver bed. The abdomen was irrigated. The trocars were removed. The skin was closed using interrupted 3-0 Vicryl suture. Dermabond dressing were applied. The patient tolerated the procedure well.
[2021-01-30 08:42] VITALS: TEMP 97.7
[2021-01-30 09:21] VITALS: BP 118/81; PULSE 67; RESP 17
--- NOTE | 2021-01-30 10:36 | P.ANPRN ---
Procedure Note - Anesthesia - Nerve Block Performed Bilateral Transversus Abdominis Single Time Out Performed: Yes Date of Procedure: 01/30/21 Procedure Start Time: 07:14 Procedure Stop Time: :19 Location of Patient: PreOp Indication: Acute Post-Operative Pain, Dx/Pain Location, Requested by Surgeon Sedation Type: Sedate with meaningful contact maintained Preparation: Sterile Prep Position: Supine Needle Types: Pajunk Needle Gauge: 21 Ultrasound used to visualize needle placement: Yes Ultrasound used to observe medication spread: Yes Injectate: 0.5% Ropivacaine (see comment for volume) (30cc) Blood Aspirated: No Pain Paresthesia on Injection Noted: No Resistance on Injection: Normal Image Stored and Saved: Yes Events: Uneventful and Well Tolerated
== END ==
LOC: OR 06:33
PROVIDERS: ATTEND Surgery
DX: K81.1 Chronic cholecystitis (principal); K21.9 Gastro-esophageal reflux disease without esophagitis; I10 Essential (primary) hypertension; F17.210 Nicotine dependence, cigarettes, uncomplicated; Z79.899 Other long term (current) drug therapy
CPT/HCPCS: 47562; 64488; 88304; J2250; J1100; J2710; J0690; J2405; J2001; J3010; J2795; J0330; J2704; J1170; J1644

== ENCOUNTER 2021-12-21 08:49 | Emergency (ER) | payer OTHER ==
[2021-12-21 08:54] VITALS: TEMP 97
[2021-12-21] MEDS ORDERED: SODIUM CHLORIDE 0.9% 2,000 ML IV STA (08:55)
[2021-12-21] MEDS ORDERED: ONDANSETRON 4 MG/2 ML VIAL IVP STA (08:55)
[2021-12-21] MEDS ORDERED: HYDROmorphone 0.5 MG/0.5 ML SYRINGE IVP STA ×2 (08:55→11:41)
[2021-12-21 09:42] LABS: ALT 85 U/L (4-49); AST 47 U/L (17-59); African American GFR (CKD) >90 (>60 ml/min/1.73 sqM); Albumin 4.2 g/dL (3.5-5.0); Alkaline Phosphatase 122 U/L (38-126); Amylase 112 U/L (30-110); Anion Gap 6 mmol/L; Basophils % (A) 1 %; Blood Urea Nitrogen 9 mg/dL (9-20); Calcium 9.4 mg/dL (8.4-10.2); Carbon Dioxide 25 mmol/L (22-30); Chloride 105 mmol/L (98-107); Eosinophils # (A) 0.3 k/uL (0-0.7); Eosinophils % (A) 4 %; Glucose 136 mg/dL (74-99); HCT 40.3 % (39.0-53.0); HGB 13.7 gm/dL (13.0-17.5); Lipase 378 U/L (23-300); Lymphocytes # (A) 2.3 k/uL (1.0-4.8); Lymphocytes % (A) 30 %; MCH 35.4 pg (25.0-35.0); MCV 104.2 fL (80.0-100.0); Macrocytosis Slight; Magnesium 1.7 mg/dL (1.6-2.3); Mean Platelet Volume 7.5; Monocytes # (A) 0.3 k/uL (0-1.0); Monocytes % (A) 4 %; Neutrophils # (A) 4.5 k/uL (1.3-7.7); Neutrophils % (A) 59 %; Non-African American GFR(CKD) 85 (>60 ml/min/1.73 sqM); Platelet Count 304 k/uL (150-450); Potassium 3.8 mmol/L (3.5-5.1); RBC 3.87 m/uL (4.30-5.90); RDW 13.2 % (11.5-15.5); Sodium 136 mmol/L (137-145); Total Bilirubin 0.6 mg/dL (0.2-1.3); Total Protein 7.7 g/dL (6.3-8.2); WBC 7.7 k/uL (3.8-10.6)
[2021-12-21 09:52] LABS: Alcohol <10 mg/dL
--- NOTE | 2021-12-21 10:21 | ED ---
Abdominal Pain HPI - General Chief Complaint: Abdominal Pain Stated Complaint: stomach pain Time Seen by Provider: 12/21/21 08:55 Source: patient, RN notes reviewed Mode of arrival: ambulatory Limitations: no limitations - History of Present Illness Initial Comments: Is a 46-year-old male presents to the emergency Department with chief complaint of abdominal pain. Patient states he was seen a few days ago for similar complaints. Does admit that he recently used alcohol for a couple days. Patient does have a history of pancreatitis from alcohol abuse. Patient denies any diarrhea Patient Does Admit to Some Nausea, VOMITING. NO CHEST PAIN OR SHOR TNESS OF BREATH. PATIENT STATES PAIN RATES HIS BACK VERY SIMILAR TO HIS PRIOR CASES OF PANCREATITIS. - Related Data Home Medications Medication Instructions Recorded Confirmed Fluticasone Propionate [Flovent 2 puff INHALATION RT-BID 12/14/20 01/28/21 Hfa 110 mcg] Ipratropium/Albuter 20-100Mcg 1 puff INHALATION RT-QID 12/14/20 01/28/21 [Combivent Respimat 20-100Mcg Inhaler] Multivit-Min/FA/Lycopen/Lutein 1 tab PO DAILY 12/14/20 01/28/21 [Centrum Silver Men Tablet] Pantoprazole [Protonix] 40 mg PO DAILY 12/14/20 01/28/21 amLODIPine [Norvasc] 2.5 mg PO DAILY 12/14/20 01/28/21 traZODone HCL 50 mg PO HS PRN 12/14/20 01/28/21 Previous Rx's Medication Instructions Recorded Acetaminophen Tab [Tylenol] 650 mg PO Q6H #30 tab 01/30/21 Docusate [Colace] 100 mg PO BID #20 capsule 01/30/21 Ibuprofen [Motrin] 600 mg PO Q6HR PRN #40 tab 01/30/21 oxyCODONE HCL [OxyIR] 5 mg PO Q6H PRN 3 Days #10 tab 01/30/21 Ondansetron Odt [Zofran Odt] 4 mg PO Q8HR PRN #10 tab 12/21/21 Allergies Allergy/AdvReac Type Severity Reaction Status Date / Time No Known Allergies Allergy Verified 12/21/21 08:54 Review of Systems ROS Statement: Those systems with pertinent positive or pertinent negative responses have been documented in the HPI. ROS Other: All systems not noted in ROS Statement are negative. Past Medical History Past Medical History: Hypertension, Musculoskeletal Disorder, Respiratory Disorder Additional Past Medical History / Comment(s): Hx dislocation Rt shoulder; kidney infection. Hx lung infection 3 months ago. Dislocated left ring finger, to f/u w/ Dr chau. Hx Pancreatitis 12/14/20. Had J&J Covid vaccine 2 weeks ago, per patient. History of Any Multi-Drug Resistant Organisms: None Reported Past Surgical History: Orthopedic Surgery Additional Past Surgical History / Comment(s): jaw surg, ORIF Rt tibia (pins/plate) Past Anesthesia/Blood Transfusion Reactions: No Reported Reaction Past Psychological History: No Psychological Hx Reported Smoking Status: Current every day smoker - Past Family History Mother Family Medical History: No Reported History General Exam Limitations: no limitations General appearance: alert, in no apparent distress Head exam: Present: atraumatic, normocephalic, normal inspection Eye exam: Present: normal appearance, PERRL, EOMI. Absent: scleral icterus, conjunctival injection, periorbital swelling ENT exam: Present: normal exam, normal oropharynx, mucous membranes moist Neck exam: Present: normal inspection, full ROM. Absent: tenderness, meningismus, lymphadenopathy Respiratory exam: Present: normal lung sounds bilaterally. Absent: respiratory distress, wheezes, rales, rhonchi, stridor Cardiovascular Exam: Present: regular rate, normal rhythm, normal heart sounds. Absent: systolic murmur, diastolic murmur, rubs, gallop, clicks GI/Abdominal exam: Present: soft, tenderness, normal bowel sounds. Absent: distended, guarding, rebound, rigid Course Vital Signs 12/21/21 12/21/21 12/21/21 08:50 10:57 12:16 Temperature 97.0 F L Pulse Rate 88 71 80 Respiratory 18 17 17 Rate Blood Pressure 145/101 142/95 158/97 O2 Sat by Pulse 100 100 98 Oximetry Medical Decision Making - Medical Decision Making 46-year-old presented for abdominal pain. CT does show mild inflammation consistent with pancreatitis he does have a lipase of 378 patient's advised to discontinue alcohol use, increase fluid hydration will be provided pain control and discharged in stable condition. - Lab Data Result diagrams: 12/21/21 09:17 12/21/21 09:17 Lab Results 12/21/21 12/21/21 12/21/21 Range/Units 09:17 09:17 09:17 WBC 7.7 (3.8-10.6) k/uL RBC 3.87 L (4.30-5.90) m/uL Hgb 13.7 (13.0-17.5) gm/dL Hct 40.3 (39.0-53.0) % MCV 104.2 H (80.0-100.0) fL MCH 35.4 H (25.0-35.0) pg MCHC 34.0 (31.0-37.0) g/dL RDW 13.2 (11.5-15.5) % Plt Count 304 (150-450) k/uL MPV 7.5 Neutrophils % 59 % Lymphocytes % 30 % Monocytes % 4 % Eosinophils % 4 % Basophils % 1 % Neutrophils # 4.5 (1.3-7.7) k/uL Lymphocytes # 2.3 (1.0-4.8) k/uL Monocytes # 0.3 (0-1.0) k/uL Eosinophils # 0.3 (0-0.7) k/uL Basophils # 0.0 (0-0.2) k/uL Macrocytosis Slight Sodium 136 L (137-145) mmol/L Potassium 3.8 (3.5-5.1) mmol/L Chloride 105 (98-107) mmol/L Carbon Dioxide 25 (22-30) mmol/L Anion Gap 6 mmol/L BUN 9 (9-20) mg/dL Creatinine 1.07 (0.66-1.25) mg/dL Est GFR (CKD-EPI)AfAm >90 (>60 ml/min/1.73 sqM) Est GFR (CKD-EPI)NonAf 85 (>60 ml/min/1.73 sqM) Glucose 136 H (74-99) mg/dL Plasma Lactic Acid Juan Miguel 0.8 (0.7-2.0) mmol/L Calcium 9.4 (8.4-10.2) mg/dL Magnesium 1.7 (1.6-2.3) mg/dL Total Bilirubin 0.6 (0.2-1.3) mg/dL AST 47 (17-59) U/L ALT 85 H (4-49) U/L Alkaline Phosphatase 122 (38-126) U/L Total Protein 7.7 (6.3-8.2) g/dL Albumin 4.2 (3.5-5.0) g/dL Amylase 112 H (30-110) U/L Lipase 378 H (23-300) U/L Urine Color Urine Appearance (Clear) Urine pH (5.0-8.0) Ur Specific [place] (1.001-1.035) Urine Protein (Negative) Urine Glucose (UA) (Negative) Urine Ketones (Negative) Urine Blood (Negative) Urine Nitrite (Negative) Urine Bilirubin (Negative) Urine Urobilinogen (<2.0) mg/dL Ur Leukocyte Esterase (Negative) Serum Alcohol <10 mg/dL 12/21/21 Range/Units 11:00 WBC (3.8-10.6) k/uL RBC (4.30-5.90) m/uL Hgb (13.0-17.5) gm/dL Hct (39.0-53.0) % MCV (80.0-100.0) fL MCH (25.0-35.0) pg MCHC (31.0-37.0) g/dL RDW (11.5-15.5) % Plt Count (150-450) k/uL MPV Neutrophils % % Lymphocytes % % Monocytes % % Eosinophils % % Basophils % % Neutrophils # (1.3-7.7) k/uL Lymphocytes # (1.0-4.8) k/uL Monocytes # (0-1.0) k/uL Eosinophils # (0-0.7) k/uL Basophils # (0-0.2) k/uL Macrocytosis Sodium (137-145) mmol/L Potassium (3.5-5.1) mmol/L Chloride (98-107) mmol/L Carbon Dioxide (22-30) mmol/L Anion Gap mmol/L BUN (9-20) mg/dL Creatinine (0.66-1.25) mg/dL Est GFR (CKD-EPI)AfAm (>60 ml/min/1.73 sqM) Est GFR (CKD-EPI)NonAf (>60 ml/min/1.73 sqM) Glucose (74-99) mg/dL Plasma Lactic Acid [place] (0.7-2.0) mmol/L Calcium (8.4-10.2) mg/dL Magnesium (1.6-2.3) mg/dL Total Bilirubin (0.2-1.3) mg/dL AST (17-59) U/L ALT (4-49) U/L Alkaline Phosphatase (38-126) U/L Total Protein (6.3-8.2) g/dL Albumin (3.5-5.0) g/dL Amylase (30-110) U/L Lipase (23-300) U/L Urine Color Light Yellow Urine Appearance Clear (Clear) Urine pH 6.0 (5.0-8.0) Ur Specific [place] 1.014 (1.001-1.035) Urine Protein Negative (Negative) Urine Glucose (UA) Negative (Negative) Urine Ketones Negative (Negative) Urine Blood Negative (Negative) Urine Nitrite Negative (Negative) Urine Bilirubin Negative (Negative) Urine Urobilinogen <2.0 (<2.0) mg/dL Ur Leukocyte Esterase Negative (Negative) Serum Alcohol mg/dL Disposition Clinical Impression: Pancreatitis, Abdominal pain Disposition: HOME SELF-CARE Condition: Stable Instructions (If sedation given, give patient instructions): Abdominal Pain (ED) Additional Instructions: Please return to the ER for any worsening,changing of symptoms or any other concerns Prescriptions: Ondansetron Odt [Zofran Odt] 4 mg PO Q8HR PRN #10 tab PRN Reason: Nausea Is patient prescribed a controlled substance at d/c from ED?: No Referrals: Pollo Hannon MD [Primary Care Provider] - 1-2 days Time of Disposition: 11:42
--- NOTE | 2021-12-21 10:50 | CT ---
EXAMINATION TYPE: CT abdomen pelvis w con DATE OF EXAM: 12/21/2021 COMPARISON: Ultrasound abdomen Limited 1 week ago. HISTORY: Abdominal pain-generalized. History of pancreatitis. CT DLP: 794.4 mGycm, Automated Exposure Control for Dose Reduction was Utilized. CONTRAST: CT scan of the abdomen and pelvis is performed without oral but with IV Contrast, patient injected wi th 100 mL of Isovue 300. FINDINGS: LUNG BASES: Mild bibasilar linear scarring and/or atelectasis. Trace pericardial effusion LIVER/GB: Liver is heterogeneously hypodense suggesting diffuse fatty infiltration. There is 6 mm low dense lesion anterior in the liver axial image 16 suggesting tiny thin-walled cyst. Gallbladder is n ot seen and presumed surgically absent new from recent ultrasound. PANCREAS: Pancreas normal in size . No worrisome solid or cystic mass. Mild ill-defined fluid and fat stranding surrounding the pancreatic head. No well-formed fluid collection seen. No areas of nonenha ncement identified. Pancreatic duct is nondilated. SPLEEN: No significant abnormality is seen. ADRENALS: No significant abnormality is seen. KIDNEYS: No significant abnormality is seen. BOWEL: Appendix within normal limits in size from cecum. Suboptimal evaluation of bowel without enter ic contrast. No suspicious small or large bowel dilatation. Distal colonic diverticula with mild wall thickening but no surrounding fat stranding. Mild wall thickening favored product of poor distention . PROSTATE/SEMINAL VESICLES: No gross abnormality seen. LYMPH NODES: No greater than 1cm abdominal or pelvic lymph nodes are appreciated. OSSEOUS STRUCTURES: Spine is straightened on sagittal images. OTHER: Mild to moderate calcified plaque of aorta extends into branch vessels. Moderate plaque at [place] of celiac artery without greater than 50% stenosis. Impression: Presumed interval cholecystectomy from recent ultrasound. No new biliary dilatation. Mild fluid and fat stranding surrounding the head and uncinate process of pancreas could reflect product of a acute focal pancreatitis. No areas of nonenhancement or well-formed fluid collection/pseudocyst seen.
[2021-12-21 10:57] VITALS: RESP 17
[2021-12-21 11:14] LABS: Appearance,Urine Clear (Clear); Bilirubin,Urine Negative (Negative); Blood,Urine Negative (Negative); Color,Urine Light Yellow; Glucose,Urine (UA) Negative (Negative); Ketones,Urine Negative (Negative); Leukocyte Esterase,Urine Negative (Negative); Nitrite,Urine Negative (Negative); Protein,Urine Negative (Negative); Specific Gravity,Urine 1.014 (1.001-1.035); Urobilinogen,Urine <2.0 mg/dL (<2.0)
[2021-12-21] MEDS ORDERED: ACET/COD 300 MG/30 MG STARTER PACK 6 TAB BTL PO STA (11:41)
[2021-12-21] MEDS ORDERED: KETOROLAC 15 MG/ML 1 ML VIAL IVP STA (11:41)
[2021-12-21] MEDS ORDERED: ONDANSETRON 4 MG ODT STARTER PACK 2 TAB BTL PO STA (11:56)
[2021-12-21 12:17] VITALS: BP 158/97; PULSE 80
== END 2021-12-21 12:34 | disposition home or self-care (01) ==
LOC: EC 08:49
DX: K85.90 Acute pancreatitis without necrosis or infection, unspecified (principal); I10 Essential (primary) hypertension; F17.200 Nicotine dependence, unspecified, uncomplicated
CPT/HCPCS: 99284; 96374; 96375 ×2; 96376; 96361 ×3; 36415; 80053; 82150; 83605; 83690; 83735; 85025; 81003; 74177; G0480; J2405; J1885; S0119; J1170; Q9967; 80320

== ENCOUNTER 2022-04-21 10:04 | Observation (INO) | payer OTHER ==
[2022-04-21] MEDS ORDERED: HYDROmorphone 0.5 MG/0.5 ML SYRINGE IVP STA (11:37)
[2022-04-21] MEDS ORDERED: SODIUM CHLORIDE 0.9% 1,000 ML IV STA (11:37)
[2022-04-21 12:12] LABS: Basophils # (A) 0.1 k/uL (0-0.2); Basophils % (A) 1 %; Eosinophils # (A) 0.3 k/uL (0-0.7); Eosinophils % (A) 3 %; HGB 14.5 gm/dL (13.0-17.5); Lymphocytes # (A) 1.9 k/uL (1.0-4.8); Lymphocytes % (A) 22 %; MCH 35.5 pg (25.0-35.0); MCHC 35.4 g/dL (31.0-37.0); MCV 100.1 fL (80.0-100.0); Mean Platelet Volume 8.8; Monocytes # (A) 0.3 k/uL (0-1.0); Monocytes % (A) 4 %; Neutrophils # (A) 5.8 k/uL (1.3-7.7); Neutrophils % (A) 68 %; Platelet Count 246 k/uL (150-450); RBC 4.09 m/uL (4.30-5.90); RDW 12.8 % (11.5-15.5); WBC 8.5 k/uL (3.8-10.6)
--- NOTE | 2022-04-21 12:20 | CT ---
EXAMINATION TYPE: CT abdomen pelvis wo con DATE OF EXAM: 04/21/2022 COMPARISON: 12/21/2021 HISTORY: Mid abdominal pain and diarrhea. CT DLP: 521.4 mGycm Automated exposure control for dose reduction was used. TECHNIQUE: Helical acquisition of images was performed from the lung bases through the pelvis. FINDINGS: There is inflammatory change in the peripancreatic region. Trace amount of fluid suspected. This is s een near the head and uncinate process of the pancreas adjacent to duodenum. Liver is prominent in size measuring 22 cm correlate for hepatomegaly. Too small to characterize left hepatic lobe 7 mm lesion retrospectively stable from prior exam and therefore likely benign. Spleen homogeneous. No hydronephrosis or nephrolithiasis. Atherosclerotic change of the aorta with no aneury sm. Adrenal glands normal morphology. Bowel gas pattern nonspecific obstruction. Contrast-filled appendix is seen in the right lower quadra nt measuring 4.6 mm in diameter and within normal limits bladder distends normally. Atherosclerotic c hange of the vasculature with aorta normal caliber. Osseous structures IMPRESSION: INFLAMMATORY CHANGE IN THE MID ABDOMEN IN THE PERIPANCREATIC AND DUODENAL REGION. FAVOR PANCREATITIS. CORRELATE CLINICALLY PEPTIC ULCER DISEASE OR DUODENITIS ALSO AN THE DIFFERENTIAL DIAGNOSIS. HEPATOMEGALY CORRELATE HEPATOCELLULAR DISEASE. TOO SMALL TO CHARACTERIZE LEFT HEPATIC LESION MEASURING 7 MM.
--- NOTE | 2022-04-21 12:24 | ED ---
Abdominal Pain HPI - General Chief Complaint: Abdominal Pain Stated Complaint: ABD Pain Time Seen by Provider: 04/21/22 10:10 Source: patient Mode of arrival: ambulatory Limitations: no limitations - History of Present Illness Initial Comments: 46-year-old male with past medical history of alcohol abuse presents to the emergency department with abdominal pain. Reports right upper quadrant abdominal pain similar nature to when he was hospitalized earlier this year with pancreatitis. Reports that he stopped drinking after that hospitalization however lost his job on Thursday and therefore binge drink on Thursday. Had several shots of alcohol. Patient denies daily drinking. He is status post cholecystectomy. No fevers. Admits to nausea with vomiting yesterday. Also had an episode of loose watery stools. Denies any sick contacts. No changes in his urination. No other alleviating, precipitating modifying factors - Related Data Home Medications Medication Instructions Recorded Confirmed Ipratropium/Albuter 20-100Mcg 1 puff INHALATION RT-QID PRN 12/14/20 04/21/22 [Combivent Respimat 20-100Mcg Inhaler] Multivit-Min/FA/Lycopen/Lutein 1 tab PO DAILY 12/14/20 04/21/22 [Centrum Silver Men Tablet] amLODIPine [Norvasc] 2.5 mg PO DAILY 12/14/20 04/21/22 traZODone HCL 50 mg PO HS PRN 12/14/20 04/21/22 Ibuprofen [Motrin] 800 mg PO TID PRN 04/21/22 04/21/22 Omeprazole 40 mg PO DAILY 04/21/22 04/21/22 Terbinafine [LamISIL] 250 mg PO DAILY 04/21/22 04/21/22 Previous Rx's Medication Instructions Recorded Thiamine [Vitamin B-1] 100 mg PO BID-W/MEALS 15 Days #30 04/22/22 tab cloNIDine HCL [Catapres] 0.1 mg PO TID 30 Days #90 tab 04/22/22 Allergies Allergy/AdvReac Type Severity Reaction Status Date / Time No Known Allergies Allergy Verified 04/21/22 14:03 Review of Systems ROS Statement: Those systems with pertinent positive or pertinent negative responses have been documented in the HPI. ROS Other: All systems not noted in ROS Statement are negative. Past Medical History Past Medical History: Hypertension, Musculoskeletal Disorder, Respiratory Disorder Additional Past Medical History / Comment(s): Hx dislocation Rt shoulder; kidney infection. Hx lung infection 3 months ago. Dislocated left ring finger, to f/u w/ soon. Hx Pancreatitis 12/14/20. History of Any Multi-Drug Resistant Organisms: None Reported Past Surgical History: Orthopedic Surgery Additional Past Surgical History / Comment(s): jaw surg, ORIF Rt tibia (pins/plate) Past Anesthesia/Blood Transfusion Reactions: No Reported Reaction Past Psychological History: No Psychological Hx Reported Smoking Status: Current every day smoker Past Alcohol Use History: Occasional Past Drug Use History: Marijuana - Past Family History Mother Family Medical History: No Reported History General Exam Limitations: no limitations General appearance: alert, in no apparent distress Head exam: Present: atraumatic, normocephalic, normal inspection Eye exam: Present: normal appearance, PERRL, EOMI. Absent: scleral icterus, conjunctival injection, periorbital swelling ENT exam: Present: normal exam, mucous membranes moist Neck exam: Present: normal inspection. Absent: tenderness, meningismus, lymphadenopathy Respiratory exam: Present: normal lung sounds bilaterally. Absent: respiratory distress, wheezes, rales, rhonchi, stridor Cardiovascular Exam: Present: regular rate, normal rhythm, normal heart sounds. Absent: systolic murmur, diastolic murmur, rubs, gallop, clicks GI/Abdominal exam: Present: soft, tenderness (epigastric), normal bowel sounds. Absent: distended, guarding, rebound, rigid Extremities exam: Present: normal inspection, full ROM, normal capillary refill. Absent: tenderness, pedal edema, joint swelling, calf tenderness Back exam: Present: normal inspection Neurological exam: Present: alert, oriented X3, CN II-XII intact Psychiatric exam: Present: normal affect, normal mood Skin exam: Present: warm, dry, intact, normal color. Absent: rash Course Vital Signs 04/21/22 04/21/22 04/21/22 10:10 13:24 14:40 Temperature 97.6 F 98.8 F Pulse Rate 95 81 Pulse Rate [ 117 H Pulse Oximetery ] Respiratory 20 20 20 Rate Blood Pressure 154/109 173/114 Blood Pressure 167/114 [Left Arm] O2 Sat by Pulse 99 99 100 Oximetry 04/21/22 04/21/22 04/21/22 17:04 17:58 18:51 Temperature Pulse Rate 94 98 107 H Pulse Rate [ Pulse Oximetery ] Respiratory 18 18 19 Rate Blood Pressure 170/113 164/116 178/121 Blood Pressure [Left Arm] O2 Sat by Pulse 99 98 99 Oximetry Medical Decision Making - Medical Decision Making Upon arrival patient was placed into room 18. A thorough history and physical exam was performed. IV access was established. Patient given pain and nausea medications. Laboratory studies are conducted and a CAT scan of his abdomen and pelvis was performed. Laboratory studies are reviewed. Potassium low at 3.3. Lipase 476. Alcohol is negative. He is reevaluated and continues to have pain and therefore is given a second dose of pain medications. CT demonstrates inflammatory changes in the mid abdomen consistent with possible pancreatitis. Patient is reevaluated once again he continues to have pain. I did recommend admission for GI consultation. Spoke with Dr. Davenport who agreed to admit the patient. - Lab Data Result diagrams: 04/22/22 08:04 04/22/22 08:04 Lab Results 04/21/22 04/21/22 04/21/22 Range/Units 11:42 11:42 11:42 WBC 8.5 (3.8-10.6) k/uL RBC 4.09 L (4.30-5.90) m/uL Hgb 14.5 (13.0-17.5) gm/dL Hct 41.0 (39.0-53.0) % MCV 100.1 H (80.0-100.0) fL MCH 35.5 H (25.0-35.0) pg MCHC 35.4 (31.0-37.0) g/dL RDW 12.8 (11.5-15.5) % Plt Count 246 (150-450) k/uL MPV 8.8 Neutrophils % 68 % Lymphocytes % 22 % Monocytes % 4 % Eosinophils % 3 % Basophils % 1 % Neutrophils # 5.8 (1.3-7.7) k/uL Lymphocytes # 1.9 (1.0-4.8) k/uL Monocytes # 0.3 (0-1.0) k/uL Eosinophils # 0.3 (0-0.7) k/uL Basophils # 0.1 (0-0.2) k/uL Sodium 135 L (137-145) mmol/L Potassium 3.3 L (3.5-5.1) mmol/L Chloride 100 (98-107) mmol/L Carbon Dioxide 22 (22-30) mmol/L Anion Gap 13 mmol/L BUN 6 L (9-20) mg/dL Creatinine 0.97 (0.66-1.25) mg/dL Est GFR (CKD-EPI)AfAm >90 (>60 ml/min/1.73 sqM) Est GFR (CKD-EPI)NonAf >90 (>60 ml/min/1.73 sqM) Glucose 120 H (74-99) mg/dL Plasma Lactic Acid Juan Miguel 0.7 (0.7-2.0) mmol/L Calcium 9.5 (8.4-10.2) mg/dL Total Bilirubin 0.8 (0.2-1.3) mg/dL AST 140 H (17-59) U/L ALT 94 H (4-49) U/L Alkaline Phosphatase 167 H (38-126) U/L Troponin I (0.000-0.034) ng/mL Total Protein 8.5 H (6.3-8.2) g/dL Albumin 4.7 (3.5-5.0) g/dL Lipase 476 H (23-300) U/L Urine Color Urine Appearance (Clear) Urine pH (5.0-8.0) Ur Specific [place] (1.001-1.035) Urine Protein (Negative) Urine Glucose (UA) (Negative) Urine Ketones (Negative) Urine Blood (Negative) Urine Nitrite (Negative) Urine Bilirubin (Negative) Urine Urobilinogen (<2.0) mg/dL Ur Leukocyte Esterase (Negative) Urine RBC (0-5) /hpf Urine WBC (0-5) /hpf Ur Squamous Epith Cells (0-4) /hpf Urine Bacteria (None) /hpf Hyaline Casts (0-2) /lpf Urine Mucus (None) /hpf Serum Alcohol <10 mg/dL 04/21/22 04/21/22 Range/Units 11:42 11:42 WBC (3.8-10.6) k/uL RBC (4.30-5.90) m/uL Hgb (13.0-17.5) gm/dL Hct (39.0-53.0) % MCV (80.0-100.0) fL MCH (25.0-35.0) pg MCHC (31.0-37.0) g/dL RDW (11.5-15.5) % Plt Count (150-450) k/uL MPV Neutrophils % % Lymphocytes % % Monocytes % % Eosinophils % % Basophils % % Neutrophils # (1.3-7.7) k/uL Lymphocytes # (1.0-4.8) k/uL Monocytes # (0-1.0) k/uL Eosinophils # (0-0.7) k/uL Basophils # (0-0.2) k/uL Sodium (137-145) mmol/L Potassium (3.5-5.1) mmol/L Chloride (98-107) mmol/L Carbon Dioxide (22-30) mmol/L Anion Gap mmol/L BUN (9-20) mg/dL Creatinine (0.66-1.25) mg/dL Est GFR (CKD-EPI)AfAm (>60 ml/min/1.73 sqM) Est GFR (CKD-EPI)NonAf (>60 ml/min/1.73 sqM) Glucose (74-99) mg/dL Plasma Lactic Acid Juan Miguel (0.7-2.0) mmol/L Calcium (8.4-10.2) mg/dL Total Bilirubin (0.2-1.3) mg/dL AST (17-59) U/L ALT (4-49) U/L Alkaline Phosphatase (38-126) U/L Troponin I <0.012 (0.000-0.034) ng/mL Total Protein (6.3-8.2) g/dL Albumin (3.5-5.0) g/dL Lipase (23-300) U/L Urine Color Yellow Urine Appearance Clear (Clear) Urine pH 6.0 (5.0-8.0) Ur Specific [place] 1.027 (1.001-1.035) Urine Protein 1+ H (Negative) Urine Glucose (UA) Negative (Negative) Urine Ketones 1+ H (Negative) Urine Blood Small H (Negative) Urine Nitrite Negative (Negative) Urine Bilirubin Negative (Negative) Urine Urobilinogen <2.0 (<2.0) mg/dL Ur Leukocyte Esterase Small H (Negative) Urine RBC 1 (0-5) /hpf Urine WBC 9 H (0-5) /hpf Ur Squamous Epith Cells <1 (0-4) /hpf Urine Bacteria Rare H (None) /hpf Hyaline Casts 9 H (0-2) /lpf Urine Mucus Rare H (None) /hpf Serum Alcohol mg/dL - EKG Data EKG Comments: EKG demonstrates sinus rhythm with rate of 72. LA interval 127. QRS 77. QTC of 399. No acute ST segment elevations. ST depression in lead 3 Disposition Clinical Impression: Pancreatitis, Abdominal pain Disposition: ADMITTED IP TO THIS HOSP Condition: Stable Is patient prescribed a controlled substance at d/c from ED?: No Time of Disposition: 13:50 Decision to Admit Reason: Admit from EC Decision Date: 04/21/22 Decision Time: 13:50
[2022-04-21 12:29] LABS: ALT 94 U/L (4-49); AST 140 U/L (17-59); African American GFR (CKD) >90 (>60 ml/min/1.73 sqM); Albumin 4.7 g/dL (3.5-5.0); Alcohol <10 mg/dL; Alkaline Phosphatase 167 U/L (38-126); Anion Gap 13 mmol/L; Blood Urea Nitrogen 6 mg/dL (9-20); Calcium 9.5 mg/dL (8.4-10.2); Carbon Dioxide 22 mmol/L (22-30); Chloride 100 mmol/L (98-107); Glucose 120 mg/dL (74-99); Lipase 476 U/L (23-300); Non-African American GFR(CKD) >90 (>60 ml/min/1.73 sqM); Potassium 3.3 mmol/L (3.5-5.1); Sodium 135 mmol/L (137-145); Total Bilirubin 0.8 mg/dL (0.2-1.3); Total Protein 8.5 g/dL (6.3-8.2)
[2022-04-21 12:40] LABS: Appearance,Urine Clear (Clear); Bacteria,Urine Rare /hpf; Bilirubin,Urine Negative (Negative); Blood,Urine Small (Negative); Color,Urine Yellow; Glucose,Urine (UA) Negative (Negative); Hyaline Casts,Urine 9 /lpf (0-2); Ketones,Urine 1+ (Negative); Leukocyte Esterase,Urine Small (Negative); Mucus,Urine Rare /hpf; Nitrite,Urine Negative (Negative); Protein,Urine 1+ (Negative); RBC,Urine 1 /hpf (0-5); Specific Gravity,Urine 1.027 (1.001-1.035); Squamous Epithelial Cell,Urine <1 /hpf (0-4); Urobilinogen,Urine <2.0 mg/dL (<2.0); WBC,Urine 9 /hpf (0-5)
[2022-04-21] MEDS ORDERED: HYDROmorphone 1 MG/ML 1 ML SYRINGE IVP STA (13:00)
[2022-04-21] MEDS ORDERED: NALOXONE 0.4 MG/ML 1 ML VIAL IV PRN (13:50)
[2022-04-21] MEDS ORDERED: ONDANSETRON 4 MG/2 ML VIAL IVP PRN (13:50)
[2022-04-21] MEDS ORDERED: HYDROmorphone 0.5 MG/0.5 ML SYRINGE IVP PRN (13:50)
[2022-04-21] MEDS ORDERED: diphenhydrAMINE 25 MG CAP PO PRN (15:20)
[2022-04-21] MEDS: HYDROmorphone 1 MG/ML 1 ML SYRINGE IVP PRN ×3 (15:24→22:08)
[2022-04-21] MEDS: SODIUM CHLORIDE 0.9% 1,000 ML IV SCH ×2 (15:25→22:04)
[2022-04-21] MEDS ORDERED: traZODone HCL 50 MG TAB PO PRN (15:45)
[2022-04-21] MEDS ORDERED: IPRATROPIUM-ALBUTEROL 3 ML NEB INHALATION PRN (15:45)
[2022-04-21] MEDS: amLODIPine 2.5 MG TAB PO SCH (17:06)
[2022-04-21] MEDS: PANTOPRAZOLE 40 MG TABLET PO SCH (17:06)
[2022-04-21] MEDS: cloNIDine HCL 0.1 MG TAB PO SCH ×2 (19:03→23:45)
[2022-04-21] MEDS: HYDROcodone/APAP 5-325MG 1 EACH TAB PO PRN ×2 (20:15→23:45)
[2022-04-22] MEDS: HYDROmorphone 1 MG/ML 1 ML SYRINGE IVP PRN ×4 (01:49→13:38)
[2022-04-22] MEDS: SODIUM CHLORIDE 0.9% 1,000 ML IV SCH ×2 (03:55→16:34)
[2022-04-22] MEDS: HYDROcodone/APAP 5-325MG 1 EACH TAB PO PRN ×3 (06:29→16:33)
[2022-04-22] MEDS: PANTOPRAZOLE 40 MG TABLET PO SCH (06:29)
--- NOTE | 2022-04-22 07:38 | HP ---
HISTORY AND PHYSICAL 14-point review of systems negative except for right upper quadrant abdominal pain. Some nausea, vomiting, otherwise negative. Home medicines see list. Family history see old chart. PAST MEDICAL HISTORY: Hypertension, GERD, onychomycosis, COPD, asthma. Surgeries he had ORIF in the past in his jaw. Temperature 97.6, pulse 80s, respiratory 16-18, cardiovascular S1, S2. Lungs clear. GI is right upper quadrant tenderness. Some mild guarding. Normal bowel sounds. No guarding. No rebound. Hematology: Negative Homans. Psych: Fair mood and affect. Elevated lipase 475, potassium 3.3. ASSESSMENT: 1. Suspect alcohol withdrawal. 2. Hypokalemia secondary to dehydration. 3. Pancreatitis. 4. Chronic pain secondary to pancreatitis. The pain medicines will be given. CIWA protocol. Rehydrate. Replace potassium. Prognosis guarded. MMGREGORYL / KEITHN: [id number] /
[2022-04-22] MEDS ORDERED: LORazepam 1 MG/0.5 ML VIAL IV PRN ×3 (08:00)
[2022-04-22] MEDS ORDERED: THIAMINE 100 MG/ML 2 ML VIAL IM STA (08:00)
--- NOTE | 2022-04-22 08:26 | US ---
EXAMINATION TYPE: US gallbladder DATE OF EXAM: 04/22/2022 COMPARISON: Ultrasound 12/14/2020, CT 04/21/2022 CLINICAL HISTORY: pancreatitis, abdominal pain.. chronic pancreatitis, cholecystectomy EXAM MEASUREMENTS: Liver Length: 15.7 cm Gallbladder Wall: Surgically absent CBD: 0.7 cm Right Kidney: 11.9 x 5.4 x 4.7 cm Pancreas: limited view due to bowel gas Liver: intercostal imaging due to bowel gas, coarse echotexture reflects possible hepatic steatosis. Small liver lesion present on previous exams not seen on today's ultrasound. Gallbladder: Surgically absent Evidence for sonographic Elias's sign: no CBD: wnl Right Kidney: wnl IMPRESSION: Postop change. Correlate for hepatic steatosis, liver measurement under sales representative facility services of size, liver is enlarged on CT. Dilated common bile duct may be due to postcholecystectomy change. Aditi abdul exam.
[2022-04-22] MEDS: amLODIPine 2.5 MG TAB PO SCH (08:33)
[2022-04-22] MEDS: cloNIDine HCL 0.1 MG TAB PO SCH ×2 (08:33→16:33)
[2022-04-22 08:44] LABS: AST 183 U/L (17-59); African American GFR (CKD) >90 (>60 ml/min/1.73 sqM); Albumin 4.2 g/dL (3.5-5.0); Alkaline Phosphatase 136 U/L (38-126); Anion Gap 10 mmol/L; Blood Urea Nitrogen 3 mg/dL (9-20); Calcium 8.7 mg/dL (8.4-10.2); Carbon Dioxide 22 mmol/L (22-30); Chloride 103 mmol/L (98-107); Glucose 122 mg/dL (74-99); Lipase 474 U/L (23-300); Non-African American GFR(CKD) >90 (>60 ml/min/1.73 sqM); Potassium 3.1 mmol/L (3.5-5.1); Sodium 135 mmol/L (137-145); Total Bilirubin 0.7 mg/dL (0.2-1.3); Total Protein 7.2 g/dL (6.3-8.2)
[2022-04-22 08:49] LABS: Basophils % (A) 0 %; Eosinophils # (A) 0.2 k/uL (0-0.7); Eosinophils % (A) 1 %; Lymphocytes # (A) 1.3 k/uL (1.0-4.8); Lymphocytes % (A) 11 %; MCH 34.9 pg (25.0-35.0); MCHC 34.2 g/dL (31.0-37.0); MCV 101.8 fL (80.0-100.0); Macrocytosis Slight; Mean Platelet Volume 8.2; Monocytes # (A) 0.4 k/uL (0-1.0); Monocytes % (A) 4 %; Neutrophils # (A) 9.9 k/uL (1.3-7.7); Neutrophils % (A) 83 %; Platelet Count 211 k/uL (150-450); RBC 3.73 m/uL (4.30-5.90); RDW 13.2 % (11.5-15.5); WBC 11.9 k/uL (3.8-10.6)
[2022-04-22 08:50] LABS: ALT 82 U/L (4-49)
[2022-04-22] MEDS ORDERED: MULTIVITAMINS, THERA 1 EACH TAB PO SCH (09:00)
--- NOTE | 2022-04-22 10:52 | P.CONS ---
History of Present Illness - Reason for Consult Consult date: 04/22/22 Pancreatitis Requesting physician: Destiny Lua - Chief Complaint Abdominal pain - History of Present Illness This 46-year-old -Spanish male who presented to the emergency department yesterday with complaints of epigastric and right upper quadrant abdominal pain. Patient states he felt the pain was consistent with pancreatitis which he has had previously. He states he did have nausea and vomiting associated with the pain. It started 2 days ago. Patient states he has a prior history of 2 previous episodes of pancreatitis. He states it is related to alcohol use. He states he's been a heavy drinker for at least 2-3 years where he was drinking either alcohol or beer at least 5 days a week. He states he had quit for some time however last week he had a situation that caused him to binge drink. He had a CT of the abdomen and pelvis showing inflammatory change in the midabdomen in the peripancreatic and duodenal region favor pancreatitis. Correlate clinically as peptic ulcer disease or duodenitis also has a differential diagnosis. Hepatomegaly correlate with hepatocellular disease and there was a 2 small to characterize left hepatic lesion measuring 7 mm stable from prior exam. Admitting labs total bilirubin 0.8 AST 140 ALT 94 alkaline phosphatase 167 lipase 476. Patient states abdominal pain has improved. He is tolerating a clear liquid diet. He is no longer having any nausea or vomiting. He denies any fevers or chills. He has a history of cholecystectomy done approximately one year ago he believes for cholecystitis. He denies any previous history of known liver disease. Labs: WBC 11.9 hemoglobin 13 hematocrit 38 platelets count 211,000 sodium 135 potassium 3.1 total bilirubin 0.7 AST 183 ALT 82 alkaline phosphatase 136 lipase 474 Review of Systems REVIEW OF SYSTEMS: CARDIOPULMONARY: No chest pain or shortness of breath. Gastrointestinal: Right upper quadrant and epigastric pain. No nausea or vomiting. No hematemesis, coffee-ground emesis. No rectal bleeding, or melena. GENITOURINARY: No dysuria or hematuria. MUSCULOSKELETAL: Reports normal range of motion., Joint pain. SKIN: No rashes. No jaundice. ENDOCRINE: No chills, fevers. No excessive weight gain or loss. No polydipsia or polyuria. PSYCHIATRIC: Unremarkable. NEUROLOGY: No change in mental status. Denies dizziness, headache. ENT: Vision unremarkable. CONSTITUTIONAL: No recent weight loss. No fever, chills, night sweats. Past Medical History Past Medical History: Hypertension, Musculoskeletal Disorder, Respiratory Disorder Additional Past Medical History / Comment(s): Hx dislocation Rt shoulder; kidney infection. Hx lung infection 3 months ago. Dislocated left ring finger, to f/u w/ Dr chau. Hx Pancreatitis 12/14/20. History of Any Multi-Drug Resistant Organisms: None Reported Past Surgical History: Orthopedic Surgery Additional Past Surgical History / Comment(s): jaw surg, ORIF Rt tibia (pins/plate) Past Anesthesia/Blood Transfusion Reactions: No Reported Reaction Past Psychological History: No Psychological Hx Reported Smoking Status: Current every day smoker Past Alcohol Use History: Occasional Past Drug Use History: Marijuana - Past Family History Mother Family Medical History: No Reported History Medications and Allergies Home Medications Medication Instructions Recorded Confirmed Type Ipratropium/Albuter 20-100Mcg 1 puff INHALATION RT-QID PRN 12/14/20 04/21/22 History [Combivent Respimat 20-100Mcg Inhaler] Multivit-Min/FA/Lycopen/Lutein 1 tab PO DAILY 12/14/20 04/21/22 History [Centrum Silver Men Tablet] amLODIPine [Norvasc] 2.5 mg PO DAILY 12/14/20 04/21/22 History traZODone HCL 50 mg PO HS PRN 12/14/20 04/21/22 History Ibuprofen [Motrin] 800 mg PO TID PRN 04/21/22 04/21/22 History Omeprazole 40 mg PO DAILY 04/21/22 04/21/22 History Terbinafine [LamISIL] 250 mg PO DAILY 04/21/22 04/21/22 History Allergies Allergy/AdvReac Type Severity Reaction Status Date / Time No Known Allergies Allergy Verified 04/21/22 14:03 Physical Exam Vitals: Vital Signs Temp Pulse Pulse Resp BP BP Pulse Ox 04/22/22 07:20 99.0 F 100 17 143/88 98 04/22/22 04:00 98.3 F 94 17 145/88 99 04/22/22 02:00 110 H 16 04/21/22 23:55 98.7 F 110 H 16 155/99 99 04/21/22 22:31 166/97 04/21/22 18:51 107 H 19 178/121 99 04/21/22 17:58 98 18 164/116 98 04/21/22 17:04 94 18 170/113 99 04/21/22 14:40 98.8 F 117 H 20 167/114 100 04/21/22 13:24 81 20 173/114 99 04/21/22 10:10 97.6 F 95 20 154/109 99 Intake and Output 04/21/22 04/22/22 04/22/22 22:59 06:59 14:59 Intake Total 1280 Balance 1280 Intake: Intake, IV Titration 1040 Amount Sodium Chloride 0.9% 1, 1040 000 ml @ 130 mls/hr IV . Q7H42M [facility] Rx#:[id number] Oral 240 Other: # Voids 4 General appearance: The patient is alert, oriented, appears in no acute d istress. HET: Head is normocephalic and atraumatic. Conjunctiva pink. Sclera anicteric. Neck: Supple without lymphadenopathy. Trachea midline. Heart: S1 S2. Regular rate and rhythm. Lungs: Clear to auscultation. Abdomen: Soft, nontender, nondistended with bowel sounds. No guarding or rigidity. Skin: No rashes. No jaundice. Extremities: Normal skin color and turgor. No pedal edema. Neurological: No focal deficits. Alert and oriented x3. Results CBC & Chem 7: 04/22/22 08:04 04/22/22 08:04 Labs: Abnormal Lab Results - Last 24 Hours (Table) 04/21/22 04/21/22 04/21/22 Range/Units 11:42 11:42 11:42 WBC (3.8-10.6) k/uL RBC 4.09 L (4.30-5.90) m/uL Hct (39.0-53.0) % MCV 100.1 H (80.0-100.0) fL MCH 35.5 H (25.0-35.0) pg Neutrophils # (1.3-7.7) k/uL Sodium 135 L (137-145) mmol/L Potassium 3.3 L (3.5-5.1) mmol/L BUN 6 L (9-20) mg/dL Glucose 120 H (74-99) mg/dL AST 140 H (17-59) U/L ALT 94 H (4-49) U/L Alkaline Phosphatase 167 H (38-126) U/L Total Protein 8.5 H (6.3-8.2) g/dL Lipase 476 H (23-300) U/L Urine Protein 1+ H (Negative) Urine Ketones 1+ H (Negative) Urine Blood Small H (Negative) Ur Leukocyte Esterase Small H (Negative) Urine WBC 9 H (0-5) /hpf Urine Bacteria Rare H (None) /hpf Hyaline Casts 9 H (0-2) /lpf Urine Mucus Rare H (None) /hpf 04/22/22 04/22/22 Range/Units 08:04 08:04 WBC 11.9 H (3.8-10.6) k/uL RBC 3.73 L (4.30-5.90) m/uL Hct 38.0 L (39.0-53.0) % MCV 101.8 H (80.0-100.0) fL MCH (25.0-35.0) pg Neutrophils # 9.9 H (1.3-7.7) k/uL Sodium 135 L (137-145) mmol/L Potassium 3.1 L (3.5-5.1) mmol/L BUN 3 L (9-20) mg/dL Glucose 122 H (74-99) mg/dL AST 183 H (17-59) U/L ALT 82 H (4-49) U/L Alkaline Phosphatase 136 H (38-126) U/L Total Protein (6.3-8.2) g/dL Lipase 474 H (23-300) U/L Urine Protein (Negative) Urine Ketones (Negative) Urine Blood (Negative) Ur Leukocyte Esterase (Negative) Urine WBC (0-5) /hpf Urine Bacteria (None) /hpf Hyaline Casts (0-2) /lpf Urine Mucus (None) /hpf Comments: CT of the abdomen and pelvis showing inflammatory change in the midabdomen in the peripancreatic and duodenal region favor pancreatitis. Correlate clinically as peptic ulcer disease or duodenitis also has a differential diagnosis. Hepatomegaly correlate with hepatocellular disease and there was a 2 small to characterize left hepatic lesion measuring 7 mm stable from prior exam. Gallbladder ultrasound: Postop change. Correlate for hepatic steatosis, liver measurement under software sales representative of size, liver is enlarged on CT. Dilated com mon bile duct may be due to postcholecystectomy change. Limited exam. CBD 0.7 cm Assessment and Plan (1) Pancreatitis Narrative/Plan: This is a 46-year-old who presented to the emergency department with complaints of abdominal pain. Patient states he felt the pain was consistent to pancreatitis as he has had in the past. Patient states he has a history of alcohol abuse as well as alcoholic pancreatitis 2-3 times prior. He states he had quit drinking however last week he was upset and did binge drink. Patient was also noted to have elevated LFTs, CT of the abdomen and pelvis show consistency with pancreatitis and hepatomegaly. Patient denies any previous history of liver disease. Pancreatitis likely related to alcohol abuse. Gal lbladder ultrasound shows no CBD dilation, patient has history of prior cholecystectomy. Continue to medically manage. Current Visit: Yes Status: Acute Code(s): K85.90 - ACUTE PANCREATITIS WITHOUT NECROSIS OR INFECTION, UNSP SNOMED Code(s): 43458696 (2) Elevated LFTs Current Visit: Yes Status: Acute Code(s): R79.89 - OTHER SPECIFIED ABNORMAL FINDINGS OF BLOOD CHEMISTRY SNOMED Code(s): 820940932 (3) Abdominal pain Current Visit: Yes Status: Acute Code(s): R10.9 - UNSPECIFIED ABDOMINAL PAIN SNOMED Code(s): 32074562 (4) Alcohol abuse Current Visit: Yes Status: Acute Code(s): F10.10 - ALCOHOL ABUSE, UNCOMPLICATED SNOMED Code(s): 91984807 Plan: 1. Continue symptomatic and supportive care 2. Gallbladder ultrasound ordered and reviewed 3. Continue clear liquid diet 4. Pain medication as needed 5. Antiemetics as needed 6. Alcohol abstinence Thank you for this consultation, we'll continue to monitor. Dr. Selena Damon I agree with the dictator's note, documented as a scribe by Vannesa Nielson.
--- NOTE | 2022-04-22 12:29 | P.GSCN ---
History of Present Illness Consult date: 04/22/22 History of present illness: CHIEF COMPLAINT: Abdominal pain HISTORY OF PRESENT ILLNESS: This is a 46-year-old male who presented to the hospital with complaints of epigastric abdominal pain with nausea and vomiting. Patient reports that symptoms started over the weekend. He did binge drink on Thursday after he had lost his job on Thursday. He's had a prior history of cholecystectomy in January 2021. Patient had a computed tomography scan of mild pancreatitis. He had mild elevated lipase. Patient reports prior history of pancreatitis when his gallbladder needed to be removed. Denies any fever chills or sweats. Denies any cardiac history. Surgical service consulted in regards to pancreatitis. Patient seen and examined with Dr. goldberg PAST MEDICAL HISTORY: Hypertension PAST SURGICAL HISTORY: See list. MEDICATIONS: See list. ALLERGIES: See list. SOCIAL HISTORY: No illicit drug use. REVIEW OF SYSTEMS: CONSTITUTIONAL: Denies fever or chills. HEENT: Denies blurred vision, vision changes, or eye pain. Denies hemoptysis CARDIOVASCULAR: Denies chest pain or pressure. RESPIRATORY: No shortness of breath. GASTROINTESTINAL: See HPI for pertinent findings HEMATOLOGIC: Denies bleeding disorders. GENITOURINARY: Denies any blood in urine or increased urinary frequency. SKIN: Denies pruitis. Denies rash. PHYSICAL EXAM: VITAL SIGNS: Reviewed GENERAL: Well-developed in no acute distress. HEENT: No sclera icterus. Extraocular movements grossly intact. Moist buccal mucosa. Head is atraumatic, normocephalic. No nasal drainage. ABDOMEN: Soft. Nondistended. Mild epigastric tenderness but patient did receive pain medication NEUROLOGIC: Alert and oriented. Cranial nerves II through XII grossly intact. LABORATORY DATA: WBC 8.5 up to 11.9 Hgb 13 platelets 211 Sodium is 135 potassium is 3.1 creatinine 0.8 to Total bilirubin is 0.7 AST 183 ALT 82 alk phos 136 Lipase around the same at 474 Serum alcohol level less than 10 IMAGING: Computed tomography scan abdomen and pelvis inflammatory changes in the mid abdomen in the nina-pancreatic and duodenal region. Favor pancreatitis. Correlate clinically as peptic ulcer disease or duodenitis also within the differential. Hepatomegaly correlate hepatocellular disease. Too small to characterize left hepatic lesion measuring 7 mm Abdominal ultrasound postop change. Correlate for hepatic steatosis, liver measurement under motor vehicle field representative of size liver is enlarged on CT. Dilated common bile duct may be due to postcholecystectomy change. ASSESSMENT: 1. Epigastric abdominal pain with acute pancreatitis likely alcohol induced 2. Status post cholecystectomy 3. Alcohol abuse PLAN: -No surgical intervention planned -Continue supportive care -Recommend to abstain from alcohol -Patient also followed by GI service. Diet advancement per GI service Thank you for this consultation Physician Barbecue Cook note has been reviewed by physician. Signing provider agrees with the documented findings, assessment, and plan of care. Past Medical History Past Medical History: Hypertension, Musculoskeletal Disorder, Respiratory Disorder Additional Past Medical History / Comment(s): Hx dislocation Rt shoulder; kidney infection. Hx lung infection 3 months ago. Dislocated left ring finger, to f/u w/ soon. Hx Pancreatitis 12/14/20. History of Any Multi-Drug Resistant Organisms: None Reported Past Surgical History: Orthopedic Surgery Additional Past Surgical History / Comment(s): jaw surg, ORIF Rt tibia (pins/plate) Past Anesthesia/Blood Transfusion Reactions: No Reported Reaction Past Psychological History: No Psychological Hx Reported Smoking Status: Current every day smoker Past Alcohol Use History: Occasional Past Drug Use History: Marijuana - Past Family History Mother Family Medical History: No Reported History Medications and Allergies Home Medications Medication Instructions Recorded Confirmed Type Ipratropium/Albuter 20-100Mcg 1 puff INHALATION RT-QID PRN 12/14/20 04/21/22 History [Combivent Respimat 20-100Mcg Inhaler] Multivit-Min/FA/Lycopen/Lutein 1 tab PO DAILY 12/14/20 04/21/22 History [Centrum Silver Men Tablet] amLODIPine [Norvasc] 2.5 mg PO DAILY 12/14/20 04/21/22 History traZODone HCL 50 mg PO HS PRN 12/14/20 04/21/22 History Ibuprofen [Motrin] 800 mg PO TID PRN 04/21/22 04/21/22 History Omeprazole 40 mg PO DAILY 04/21/22 04/21/22 History Terbinafine [LamISIL] 250 mg PO DAILY 04/21/22 04/21/22 History Allergies Allergy/AdvReac Type Severity Reaction Status Date / Time No Known Allergies Allergy Verified 04/21/22 14:03 Surgical - Exam Vital Signs Temp Pulse Resp BP Pulse Ox 97.6 F 95 20 154/109 99 04/21/22 10:10 04/21/22 10:10 04/21/22 10:10 04/21/22 10:10 04/21/22 10:10 Results - Labs 04/22/22 08:04 04/22/22 08:04 Abnormal Lab Results - Last 24 Hours (Table) 04/21/22 04/21/22 04/21/22 Range/Units 11:42 11:42 11:42 WBC (3.8-10.6) k/uL RBC 4.09 L (4.30-5.90) m/uL Hct (39.0-53.0) % MCV 100.1 H (80.0-100.0) fL MCH 35.5 H (25.0-35.0) pg Neutrophils # (1.3-7.7) k/uL Sodium 135 L (137-145) mmol/L Potassium 3.3 L (3.5-5.1) mmol/L BUN 6 L (9-20) mg/dL Glucose 120 H (74-99) mg/dL AST 140 H (17-59) U/L ALT 94 H (4-49) U/L Alkaline Phosphatase 167 H (38-126) U/L Total Protein 8.5 H (6.3-8.2) g/dL Lipase 476 H (23-300) U/L Urine Protein 1+ H (Negative) Urine Ketones 1+ H (Negative) Urine Blood Small H (Negative) Ur Leukocyte Esterase Small H (Negative) Urine WBC 9 H (0-5) /hpf Urine Bacteria Rare H (None) /hpf Hyaline Casts 9 H (0-2) /lpf Urine Mucus Rare H (None) /hpf 04/22/22 04/22/22 Range/Units 08:04 08:04 WBC 11.9 H (3.8-10.6) k/uL RBC 3.73 L (4.30-5.90) m/uL Hct 38.0 L (39.0-53.0) % MCV 101.8 H (80.0-100.0) fL MCH (25.0-35.0) pg Neutrophils # 9.9 H (1.3-7.7) k/uL Sodium 135 L (137-145) mmol/L Potassium 3.1 L (3.5-5.1) mmol/L BUN 3 L (9-20) mg/dL Glucose 122 H (74-99) mg/dL AST 183 H (17-59) U/L ALT 82 H (4-49) U/L Alkaline Phosphatase 136 H (38-126) U/L Total Protein (6.3-8.2) g/dL Lipase 474 H (23-300) U/L Urine Protein (Negative) Urine Ketones (Negative) Urine Blood (Negative) Ur Leukocyte Esterase (Negative) Urine WBC (0-5) /hpf Urine Bacteria (None) /hpf Hyaline Casts (0-2) /lpf Urine Mucus (None) /hpf Diabetes panel 04/21/22 04/22/22 Range/Units 11:42 08:04 Sodium 135 L 135 L (137-145) mmol/L Potassium 3.3 L 3.1 L (3.5-5.1) mmol/L Chloride 100 103 (98-107) mmol/L Carbon Dioxide 22 22 (22-30) mmol/L BUN 6 L 3 L (9-20) mg/dL Creatinine 0.97 0.82 (0.66-1.25) mg/dL Glucose 120 H 122 H (74-99) mg/dL Calcium 9.5 8.7 (8.4-10.2) mg/dL AST 140 H 183 H (17-59) U/L ALT 94 H 82 H (4-49) U/L Alkaline Phosphatase 167 H 136 H (38-126) U/L Total Protein 8.5 H 7.2 (6.3-8.2) g/dL Albumin 4.7 4.2 (3.5-5.0) g/dL Calcium panel 04/21/22 04/22/22 Range/Units 11:42 08:04 Calcium 9.5 8.7 (8.4-10.2) mg/dL Albumin 4.7 4.2 (3.5-5.0) g/dL Pituitary panel 04/21/22 04/22/22 Range/Units 11:42 08:04 Sodium 135 L 135 L (137-145) mmol/L Potassium 3.3 L 3.1 L (3.5-5.1) mmol/L Chloride 100 103 (98-107) mmol/L Carbon Dioxide 22 22 (22-30) mmol/L BUN 6 L 3 L (9-20) mg/dL Creatinine 0.97 0.82 (0.66-1.25) mg/dL Glucose 120 H 122 H (74-99) mg/dL Calcium 9.5 8.7 (8.4-10.2) mg/dL Adrenal panel 04/21/22 04/22/22 Range/Units 11:42 08:04 Sodium 135 L 135 L (137-145) mmol/L Potassium 3.3 L 3.1 L (3.5-5.1) mmol/L Chloride 100 103 (98-107) mmol/L Carbon Dioxide 22 22 (22-30) mmol/L BUN 6 L 3 L (9-20) mg/dL Creatinine 0.97 0.82 (0.66-1.25) mg/dL Glucose 120 H 122 H (74-99) mg/dL Calcium 9.5 8.7 (8.4-10.2) mg/dL Total Bilirubin 0.8 0.7 (0.2-1.3) mg/dL AST 140 H 183 H (17-59) U/L ALT 94 H 82 H (4-49) U/L Alkaline Phosphatase 167 H 136 H (38-126) U/L Total Protein 8.5 H 7.2 (6.3-8.2) g/dL Albumin 4.7 4.2 (3.5-5.0) g/dL
[2022-04-22] MEDS ORDERED: Potassium Replacement Protocol 1 EACH MISC MISCELLANE PRN (15:01)
[2022-04-22 15:36] VITALS: RESP 16
[2022-04-22] MEDS: POTASSIUM CHLORIDE ER 20 MEQ TAB.ER PO SCH (16:33)
[2022-04-22 16:43] VITALS: BP 172/87; PULSE 88; TEMP 98.3
[2022-04-22] MEDS ORDERED: THIAMINE 100 MG TAB PO SCH (17:30)
== END 2022-04-22 18:48 | disposition home or self-care (01) ==
LOC: EC 10:04 → 6NMEDSUR 13:50 → 3SCARD 18:34
PROVIDERS: ADMIT Family Medicine; ATTEND Family Medicine
DX: K85.90 Acute pancreatitis without necrosis or infection, unspecified (principal); F10.10 Alcohol abuse, uncomplicated; E86.0 Dehydration; E87.6 Hypokalemia; K86.1 Other chronic pancreatitis; I10 Essential (primary) hypertension; K76.9 Liver disease, unspecified; K21.9 Gastro-esophageal reflux disease without esophagitis; K83.8 Other specified diseases of biliary tract; F17.200 Nicotine dependence, unspecified, uncomplicated; J44.9 Chronic obstructive pulmonary disease, unspecified; Z79.899 Other long term (current) drug therapy; Z98.890 Other specified postprocedural states; Z90.49 Acquired absence of other specified parts of digestive tract; Z87.440 Personal history of urinary (tract) infections; Z87.2 Personal history of diseases of the skin and subcutaneous tissue
CPT/HCPCS: 96376 ×3; 96372; 96361; 96374; 96375; 99285; 36415; 93005; 80053 ×2; 83605; 83690 ×2; 84484; 85025 ×2; 81001; 76705; 74176; G0378 ×3; G0480; J3411; J2405; J1170 ×3; 80320

== ENCOUNTER → 2023-05-13 | Outpatient (CLI) | payer OTHER ==
--- NOTE | 2023-05-13 11:23 | XR ---
EXAMINATION TYPE: XR forearm LT DATE OF EXAM: 05/13/2023 CLINICAL HISTORY: pain TECHNIQUE: Frontal and lateral images of the left forearm are obtained. COMPARISON: None. FINDINGS: There is no acute fracture/dislocation evident. The joint spaces appear within normal limi ts. The overlying soft tissue appears unremarkable. IMPRESSION: There is no acute fracture or dislocation. ICD 10 NO FRACTURE, INITIAL EVALUATION
== END | disposition home or self-care (01) ==
LOC: RADXRMAIN 11:04
PROVIDERS: ATTEND Emergency Medicine
DX: S56.414A Strain of extensor muscle, fascia and tendon of left middle finger at forearm level, initial encounter (principal); X58.XXXA Exposure to other specified factors, initial encounter